=== PATIENT | male | born 1995 | race Two or more races ===

== ENCOUNTER 2019-02-26 11:55 | Inpatient (IN) | payer OTHER, BC ==
[2019-02-26] MEDS ORDERED: Sodium Chloride 0.9% 1,000 ML IV ONE (12:20)
[2019-02-26] MEDS ORDERED: fentaNYL 50 MCG/ML SDV IVPUSH ONE (12:20)
[2019-02-26] MEDS ORDERED: fentaNYL 100 MCG/2 ML SDV ONE (12:22)
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
[2019-02-26 12:47] LABS: BLOOD UREA NITROGEN,BUN 14 mg/dL (7.0-18.0); CARBON DIOXIDE,CO2 25.6 mmol/L (21.0-32.0); CHLORIDE,CL 104 mmol/L (98-107); GLUCOSE RANDOM 130 mg/dL (74-106); LIPASE 178 U/L (73-393); POTASSIUM,K 3.7 mmol/L (3.5-5.1); SODIUM,NA 141 mmol/L (136-148)
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
[2019-02-26] MEDS: Iopamidol 755 MG/ML 200 ML Multipack Bottle IVPUSH ONE ×2 (12:53→20:09)
--- NOTE | 2019-02-26 13:15 | CT ---
CT abdomen and pelvis Technique: Multiple axial sections were obtained from above the dome of the diaphragm inferiorly through the pubic symphysis. Intravenous contrast was utilized. No oral contrast has been given. Comparison: No prior abdominal imaging is available. Findings: Visualized lung bases show hazy parenchymal densities most likely representing atelectasis. Liver laceration is noted inferiorly with a small amount of surrounding blood. No additional abnormality is seen within the liver. Spleen appears within normal limits. Adrenal glands show no nodule. Kidneys show symmetric contrast enhancement without hydronephrosis or mass. Pancreas is within normal limits. Gallbladder contains no calcified gallstones. Aorta shows no aneurysm. No retroperitoneal adenopathy or mesenteric abnormalities are seen. Slight increased density within the mesentery within the right lower abdomen is noted most likely representing small mesenteric contusion. Further definition of this contusion is difficult without oral contrast. No pelvic mass or adenopathy is seen. No free fluid is seen. Fat-containing right inguinal hernia is noted. Bone window settings were reviewed which shows no discrete acute osseous finding. Impression: 1. Liver laceration within the inferior right lobe with mild amount of surrounding hematoma compatible with grade 1 to grade 2 injury. 2. Slight increased density within the right lower mesentery most likely due to small mesenteric contusion. 3. Other findings as noted above. No other acute abnormality is seen. Diagnostic code #3 This report was dictated in [place] Standard Time
[2019-02-26] MEDS ORDERED: HYDROmorphone 2 MG/ML Syringe IVPUSH ONE ×2 (13:23→13:48)
[2019-02-26] MEDS ORDERED: Ondansetron 4 MG/2 ML SDV IVPUSH ONE (13:49)
[2019-02-26] MEDS ORDERED: Ondansetron 4 MG/2 ML SDV ONE ×2 (13:51→14:33)
--- NOTE | 2019-02-26 14:22 | CR ---
Pelvis: AP view of the pelvis was obtained. Comparison: No previous pelvis exam. Bony density is seen off the superior acetabulum. Joint spaces within both hips are maintained. Sacroiliac joints appear within normal limits. Impression: 1. Small bony density off the superior right acetabulum. Recent CT study was reviewed which does show small lucent line within the superior acetabulum. Findings are suspicious for minimal peripheral fracture within the superior right acetabulum. 2. AP pelvis study is otherwise unremarkable. Diagnostic code #3 This report was dictated in [place] Standard Time
--- NOTE | 2019-02-26 14:22 | CR ---
Right knee: AP and lateral views of the right knee were obtained. Comparison: No previous knee exam. Medial and lateral joint spaces are preserved. No joint effusion is seen. No fracture or other abnormality is appreciated. Impression: 1. No abnormality is seen on 2 view right knee exam. Diagnostic code #1 This report was dictated in [place] Standard Time
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
--- NOTE | 2019-02-26 14:27 | PCM.SN ---
- Free Text/Narrative Note: pt seen, chart reviewed; liver lac gr 1 - 2 , no contrast extravasation or hemodynamic instability; and abd exam benign; would need to be bed flat X 4 - 5 days; and check h/h; pt is taking to or for R femur fracture by ortho; [id number]
[2019-02-26] MEDS ORDERED: Rocuronium 100 MG/10 ML Syringe ONE (14:32)
[2019-02-26] MEDS ORDERED: fentaNYL 250 MCG/5 ML SDV ONE (14:33)
[2019-02-26] MEDS ORDERED: Propofol 200 MG/20 ML SDV ONE (14:33)
[2019-02-26] MEDS ORDERED: Midazolam 1 MG/ML 2 ML SDV ONE (14:33)
[2019-02-26] MEDS ORDERED: Lidocaine 2% 5 ML SDV ONE (14:33)
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
[2019-02-26] MEDS ORDERED: ceFAZolin 2 GM in Premix Bag 1 BAG IV ONE (14:58)
--- NOTE | 2019-02-26 15:24 | PCM.SN ---
- Free Text/Narrative Note: pt has grade 1-2 liver lac. treatment is straight bed flat, bed rest X 3 days; admitted to telemetry, with h/h q12; pt aware if there is any hemodynamic instability, pt would need to be transfer out to tertiary care center. DVT SCD , no chemical anticoag. can roll to side to side q2 hr for decubitis precaution ; and HOB 30 degree for meal on day 2; most the time, remained bed flat, bed rest. first day remained npo/protonix after ortho surgery.
[2019-02-26] MEDS ORDERED: ceFAZolin 1 GM Vial ONE (15:32)
[2019-02-26] MEDS ORDERED: Sodium Chloride 0.9% 20 ML ONE (15:32)
[2019-02-26] MEDS ORDERED: ePHEDrine 50 MG/ML SDV ONE (15:51)
[2019-02-26] MEDS ORDERED: Glycopyrrolate 0.2 MG/ML SDV ONE (15:54)
[2019-02-26] MEDS ORDERED: EPINEPHrine 1:10,000 1 MG/10 ML Syringe IVPUSH PRN (17:55)
[2019-02-26] MEDS ORDERED: Naloxone 0.4 MG/ML Syringe IVPUSH PRN (17:55)
[2019-02-26] MEDS ORDERED: Atropine 0.1 MG/ML 10 ML Syringe IVPUSH PRN ×2 (17:55)
[2019-02-26] MEDS ORDERED: 50% Dextrose in Water 50 ML Syringe IVPUSH PRN (17:55)
[2019-02-26] MEDS ORDERED: Albuterol 0.083% 2.5 MG/3 ML Neb Soln NEB PRN (17:55)
--- NOTE | 2019-02-26 18:07 | PCM.OPNOTE ---
- General Post-Op/Procedure Note Date of Surgery/Procedure: 02/26/19 Operative Procedure(s): right femur antegrade nail Pre Op Diagnosis: right femur closed shaft fracture Post-Op Diagnosis: Same Anesthesia Technique: General ET Tube Primary Surgeon: Madhu Arellano EBL in mLs: 1,000 Complications: None Condition: Stable
[2019-02-26] MEDS ORDERED: HYDROmorphone 2 MG/ML Syringe IVPUSH PRN (18:21)
[2019-02-26] MEDS: fentaNYL 100 MCG/2 ML SDV IVPUSH PRN ×2 (18:22→18:35)
--- NOTE | 2019-02-26 18:56 | PCM.POSTAN ---
POST ANESTHESIA ASSESSMENT - MENTAL STATUS Mental Status: Alert, Oriented Free Text/Narrative:: Awakes when name is called. - VITAL SIGNS Vital Signs: Last Vital Signs Temp 99.0 F 02/26/19 18:07 Pulse 109 H 02/26/19 18:47 Resp 12 02/26/19 18:47 BP 124/81 02/26/19 18:47 Pulse Ox 99 02/26/19 18:47 - RESPIRATORY Respiratory Status: Respiratory Rate WNL, Airway Patent, O2 Saturation Stable - CARDIOVASCULAR CV Status: Pulse Rate WNL, Blood Pressure Stable - GASTROINTESTINAL GI Status: No Symptoms - PAIN Pain Score: 3 - POST OP HYDRATION Hydration Status: Adequate & Stable - OBSERVATIONS Free Text/Narrative:: Significant intra-op hypotension and tachycardia. After induction SBP 70-80's with HR 150's. Responsive to ephedrine and phenylephrine; intra-op 16g IV placed and aggressive crystalloid resuscitation performed. Currently 4.5L Crystalloid since admission. Lactate checked in PACU and is elevated at 3.0. Dr Giron Requesting ICU at this time. U/O 30-45mL/HR intra-op despite fluid administration.
[2019-02-26] MEDS ORDERED: Iopamidol 755 Mg/ML 100 ML Bottle IVPUSH ONE (20:09)
--- NOTE | 2019-02-26 20:09 | OR ---
SURGEON: Madhu Arellano DATE OF PROCEDURE: 02/26/2019 PREOPERATIVE DIAGNOSIS: Right femoral shaft fracture, closed. POSTOPERATIVE DIAGNOSIS: Right femoral shaft fracture, closed. PROCEDURE PERFORMED: Right femoral shaft fracture, intramedullary antegrade nail. PRIMARY SURGEON: Madhu Arellano D.O. ANESTHESIA: General endotracheal intubation. FLUIDS: Lactated Ringer solution. ESTIMATED BLOOD LOSS: 1000 mL. COMPLICATIONS: None. SPECIMEN: None. DISCHARGE DISPOSITION: Stable to PACU. HISTORY AND INDICATIONS FOR THE PROCEDURE: The patient was seen preoperatively by myself in the emergency department. He had suffered the above-mentioned fracture which is confirmed on radiographs. Risks and benefits of procedure were explained to the patient and informed consent was obtained. DETAILS OF PROCEDURE: The patient was seen preoperatively by myself and the Anesthesia staff in the preop holding area where the operative site was marked. He was brought to the operative suite by Anesthesia staff, where general anesthesia was administered. He was placed on the trauma table. Both lower extremities had the feet placed into the boots, the traction placed on the right lower extremity, the operative leg was lower than the nonoperative leg. All extremities found to be well padded. The right lower extremity was prepped and draped and then a time-out was called identifying the correct patient, the correct procedure, the correct side, and antibiotics had been given within appropriate time. A sterilely draped fluoroscopy unit was used during the procedure. The greater trochanter was identified using AP fluoroscopy and then through palpation laterally. I then made an incision in proximal greater trochanter and then through the fascia. The patient had quite a bit of fat on him, so this did take a little time. The awl was then entered at the junction of the anterior 1/3 and posterior 2/3 of the greater trochanter. I then used to advance it. This was difficult, so I used imaging to ensure that our path was good. The issue was that the proximal fragment of course was flexed and the distal fragment was sagging. Because it was so difficult, I placed my guidewire through and I took quite a bit of time in order to get this reduced so that the guidewire can pass. Once a guidewire passed, we measured 420 down to the knee. We sequentially reamed from 9.5 up to 13 and after we did an entry reamer which was a 13 down to the level lesser trochanter, which was also very difficult secondary to the bone quality, we had sufficient chatter with the reamers. 11 x 420 nail was then advanced. This was extremely difficult, and I removed the nail and then overreamed to a 13/5. I then continued to pass the nail and had to hammer it the entire way down and this was extremely difficult. It passed the fracture site easily, but we had to hammer it all the way to the knee. Once I ensured that it was not too far the knee and it was as far as it could go actually and then it was in proper position proximally, I took off the traction so that the femoral portions could oppose each other. I then used my outrigger and then drilled my antegrade hole down to the area of the lesser trochanter. This measured 50 mm and I placed a screw. I then focused on my perfect [employer] technique and placed a 47.5 mm distal locking screw. After this was completed, I copiously irrigated with saline, took final films, closed the proximal incision with 0 Stratafix and osmani and the remainder of the incisions with osmani followed by Betadine-soaked Adaptic sponges and Medipore tape. We then transferred the patient back to his hospital bed where he was allowed to awaken from general anesthesia in the PACU. [id number] / MODL /[id number]
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
[2019-02-26] MEDS: Ondansetron 4 MG/2 ML SDV IVPUSH PRN (20:57)
[2019-02-26] MEDS: Sodium Chloride 0.9% 1,000 ML IV SCH (22:34)
[2019-02-27] MEDS ORDERED: ceFAZolin 1 GM in Premix Bag 1 BAG IV ONE (00:13)
--- NOTE | 2019-02-27 01:15 | CR ---
Indication: Tachycardia Technique: Chest 1 view Comparison: None Findings/Impression: Cardiovascular and mediastinum: An enlarged cardiac silhouette could be related to the portable technique. Lungs and pleural space: Low lung volumes. Small infrahilar opacities could represent atelectasis or evolving infiltrates. Correlate clinically and follow-up. No gross pleural effusions. Bones and soft tissues: No significant findings. Dictated by Norm Khalil MD @ 02/27/2019 1:12:09 AM Dictated by: Norm Khalil MD @ 02/27/2019 01:12:20 (Electronically Signed)
[2019-02-27 01:31] LABS: BLOOD UREA NITROGEN,BUN 12 mg/dL (7.0-18.0); CARBON DIOXIDE,CO2 28.1 mmol/L (21.0-32.0); CHLORIDE,CL 106 mmol/L (98-107); GLUCOSE RANDOM 153 mg/dL (74-106); POTASSIUM,K 4.5 mmol/L (3.5-5.1); SODIUM,NA 141 mmol/L (136-148)
[2019-02-27] MEDS ORDERED: Magnesium Sulfate/Water 2 GM in Premix Bag 1 BAG IV ONE (01:55)
[2019-02-27] MEDS: Sodium Chloride 0.9% 1,000 ML IV SCH ×4 (05:23→18:42)
[2019-02-27] MEDS: HYDROmorphone 1 MG/ML Syringe IVPUSH PRN ×4 (06:58→22:52)
--- NOTE | 2019-02-27 09:32 | PCM48HPAN ---
Post Anesthesia Note - EVALUATION WITHIN 48HRS OF ANESTHETIC Vital Signs in Normal Range: Yes Patient Participated in Evaluation: Yes Respiratory Function Stable: Yes Airway Patent: Yes Cardiovascular Function Stable: Yes Hydration Status Stable: Yes Pain Control Satisfactory: Yes Nausea and Vomiting Control Satisfactory: Yes Mental Status Recovered: Yes Vital Signs: Last Vital Signs Temp 99.1 F 02/27/19 04:00 Pulse 109 H 02/26/19 18:51 Resp 19 02/27/19 07:00 BP 104/57 L 02/27/19 07:00 Pulse Ox 91 L 02/27/19 07:00 - COMMENTS/OBSERVATIONS Free Text/Narrative:: Rising Lactate overnight, is trending down this AM.
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
[2019-02-27] MEDS ORDERED: ceFAZolin 2 GM in Premix Bag 1 BAG IV ONE (11:24)
--- NOTE | 2019-02-27 12:49 | CR ---
Right femur: 6 fluoroscopic spot views were obtained of the right femur utilizing C-arm device. Comparison: Previous femur study performed earlier on the same day (12:01 PM). Previous femur fracture shows evidence of reduction with intramedullary alysia being placed. Fluoroscopy time given as 312.5 seconds. Impression: 1. Procedural study as noted above. Diagnostic code #2 This report was dictated in [place] Standard Time
[2019-02-27] MEDS ORDERED: Iopamidol 755 MG/ML 200 ML Multipack Bottle IVPUSH ONE (14:01)
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
[2019-02-27] MEDS ORDERED: Phenol 1.4% Oral Spray 177 ML Bottle MUCMEM PRN (20:36)
[2019-02-28] MEDS: Sodium Chloride 0.9% 1,000 ML IV SCH ×4 (00:50→23:34)
[2019-02-28] MEDS: Acetaminophen/oxyCODONE 325-5 MG Tab PO PRN ×5 (01:43→22:08)
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
--- NOTE | 2019-02-28 13:33 | PCM.SURGPN ---
- General Info Date of Service: 02/28/19 Functional Status: Reports: Pain Controlled - Review of Systems General: Reports: No Symptoms (on full liquid, fidel well, and is hungry; bed flat for liver lac, h/h dropped to 9.1, may be dilutional, will recheck; PE scan -ve.) - Patient Data Vitals - Most Recent: Last Vital Signs Temp 98.6 F 02/28/19 08:00 Pulse 109 H 02/26/19 18:51 Resp 15 02/28/19 13:00 BP 124/64 02/28/19 13:00 Pulse Ox 95 02/28/19 13:00 Weight - Most Recent: 248 lb 6.4 oz I&O - Last 24 Hours: Intake & Output 02/27/19 02/28/19 02/28/19 22:59 06:59 14:59 Intake Total 981 2225 Output Total 925 1950 Balance 56 275 Lab Results Last 24 Hrs: Laboratory Results - last 24 hr 02/27/19 02/27/19 02/28/19 Range/Units 18:03 21:22 05:43 WBC 7.85 8.60 (4.0-11.0) K/uL RBC 3.71 L 3.29 L (4.50-5.90) M/uL Hgb 10.2 L 9.1 L (13.0-17.0) g/dL Hct 32.2 L 28.2 L (38.0-50.0) % MCV 86.8 85.7 (80.0-98.0) fL MCH 27.5 27.7 (27.0-32.0) pg MCHC 31.7 32.3 (31.0-37.0) g/dL RDW Std Deviation 41.7 40.3 (28.0-62.0) fl RDW Coeff of Diana 13 13 (11.0-15.0) % Plt Count 147 L 143 L (150-400) K/uL MPV 10.40 9.90 (7.40-12.00) fL Neut % (Auto) 76.3 75.9 (48.0-80.0) % Lymph % (Auto) 11.8 L 11.5 L (16.0-40.0) % [place] % (Auto) 11.7 12.2 (0.0-15.0) % Eos % (Auto) 0.1 0.2 (0.0-7.0) % Baso % (Auto) 0.1 0.2 (0.0-1.5) % Neut # (Auto) 6.0 H 6.5 H (1.4-5.7) K/uL Lymph # (Auto) 0.9 1.0 (0.6-2.4) K/uL [place] # (Auto) 0.9 H 1.1 H (0.0-0.8) K/uL Eos # (Auto) 0.0 0.0 (0.0-0.7) K/uL Baso # (Auto) 0.0 0.0 (0.0-0.1) K/uL Nucleated RBC % 0.0 0.0 /100WBC Nucleated RBCs # 0 0 K/uL POC Glucose 122 H (60-110) mg/dL 02/28/19 Range/Units 06:02 WBC (4.0-11.0) K/uL RBC (4.50-5.90) M/uL Hgb (13.0-17.0) g/dL Hct (38.0-50.0) % MCV (80.0-98.0) fL MCH (27.0-32.0) pg MCHC (31.0-37.0) g/dL RDW Std Deviation (28.0-62.0) fl RDW Coeff of [place] (11.0-15.0) % Plt Count (150-400) K/uL MPV (7.40-12.00) fL Neut % (Auto) (48.0-80.0) % Lymph % (Auto) (16.0-40.0) % [place] % (Auto) (0.0-15.0) % Eos % (Auto) (0.0-7.0) % Baso % (Auto) (0.0-1.5) % Neut # (Auto) (1.4-5.7) K/uL Lymph # (Auto) (0.6-2.4) K/uL [place] # (Auto) (0.0-0.8) K/uL Eos # (Auto) (0.0-0.7) K/uL Baso # (Auto) (0.0-0.1) K/uL Nucleated RBC % /100WBC Nucleated RBCs # K/uL POC Glucose 127 H (60-110) mg/dL Med Orders - Current: Current Medications Hydromorphone HCl (Dilaudid) 1 mg IVPUSH Q2H PRN PRN Reason: Pain Last Admin: 02/27/19 22:52 Dose: 1 mg Sodium Chloride (Normal Saline) 1,000 mls @ 175 mls/hr IV ASDIRECTED EVANGELINA Last Admin: 02/28/19 06:12 Dose: 175 mls/hr Ondansetron HCl (Zofran) 4 mg IVPUSH Q8H PRN PRN Reason: Nausea/Vomiting Last Admin: 02/26/19 20:57 Dose: 4 mg Oxycodone/Acetaminophen (Percocet 325-5 Mg) 2 tab PO Q4H PRN PRN Reason: Pain (severe 7-10) Last Admin: 02/28/19 11:58 Dose: 2 tab Phenol/Menthol (Chloraseptic Throat [place]) 0 ml MUCMEM Q2H PRN PRN Reason: Sore Throat Discontinued Medications Albuterol (Proventil Neb Soln) 2.5 mg NEB ONETIME PRN PRN Reason: Wheezing Atropine Sulfate (Atropine 0.1 Mg/Ml) 0.5 mg IVPUSH ASDIRECTED PRN PRN Reason: Hypo-perfusion Atropine Sulfate (Atropine 0.1 Mg/Ml) 1 mg IVPUSH ASDIRECTED PRN PRN Reason: Hypo-Perfusion Cefazolin Sodium (Ancef) Confirm Administered Dose 2 gm .ROUTE .STK-MED ONE Stop: 02/26/19 15:33 Dextrose/Water (Dextrose 50% In Water) 50 ml IVPUSH ASDIRECTED PRN PRN Reason: Hypoglycemia Ephedrine Sulfate (Ephedrine Sulfate) Confirm Administered Dose 50 mg .ROUTE .STK-MED ONE Stop: 02/26/19 15:52 Epinephrine HCl (Epinephrine 1:10,000) 1 mg IVPUSH ASDIRECTED PRN PRN Reason: ACLS Guidelines Fentanyl (Fentanyl) 50 mcg IVPUSH ONETIME ONE Stop: 02/26/19 12:21 Last Admin: 02/26/19 12:57 Dose: Not Given Fentanyl (Sublimaze) Confirm Administered Dose 100 mcg .ROUTE .STK-MED ONE Stop: 02/26/19 12:23 Last Admin: 02/26/19 12:27 Dose: 50 mcg Fentanyl (Sublimaze) Confirm Administered Dose 250 mcg .ROUTE .STK-MED ONE Stop: 02/26/19 14:34 Fentanyl (Sublimaze) 50 - 100 mcg IVPUSH Q5M PRN PRN Reason: Pain Last Admin: 02/26/19 18:35 Dose: 50 mcg Glycopyrrolate (Robinul) Confirm Administered Dose 0.2 mg .ROUTE .STK-MED ONE Stop: 02/26/19 15:55 Hydromorphone HCl (Dilaudid) 2 mg IVPUSH ONETIME ONE Stop: 02/26/19 13:24 Last Admin: 02/26/19 13:33 Dose: 2 mg Hydromorphone HCl (Dilaudid) 2 mg IVPUSH ONETIME ONE Stop: 02/26/19 13:49 Last Admin: 02/26/19 13:53 Dose: 2 mg Hydromorphone HCl (Dilaudid) 2 mg IVPUSH Q2H PRN PRN Reason: pain Last Admin: 02/26/19 23:32 Dose: 2 mg Sodium Chloride (Normal Saline) 1,000 mls @ 999 mls/hr IV .Bolus ONE Stop: 02/26/19 13:20 Last Admin: 02/26/19 13:33 Dose: 999 mls/hr Cefazolin Sodium/Dextrose 2 gm (/ Premix) 50 mls @ 100 mls/hr IV ONETIME ONE Stop: 02/26/19 15:27 Last Admin: 02/26/19 21:39 Dose: Not Given Sodium Chloride (Normal Saline) Confirm Administered Dose 20 mls @ as directed .ROUTE .STK-MED ONE Stop: 02/26/19 15:33 Sodium Chloride (Normal Saline) 1,000 mls @ 150 mls/hr IV ASDIRECTED [facility] Last Admin: 02/27/19 18:42 Dose: 175 mls/hr Cefazolin Sodium/Dextrose 1 gm (/ Premix) 50 mls @ 100 mls/hr IV ONETIME ONE Stop: 02/27/19 00:42 Last Admin: 02/27/19 00:28 Dose: 100 mls/hr Magnesium Sulfate 2 gm/ Premix 50 mls @ 50 mls/hr IV ONETIME ONE Stop: 02/27/19 02:54 Last Admin: 02/27/19 02:01 Dose: 50 mls/hr Cefazolin Sodium/Dextrose 2 gm (/ Premix) 50 mls @ 100 mls/hr IV ONETIME ONE Stop: 02/27/19 11:53 Last Admin: 02/27/19 12:51 Dose: 100 mls/hr Iopamidol (Isovue Multipack-370 (76%)) 100 ml IVPUSH ONETIME ONE Stop: 02/26/19 12:53 Last Admin: 02/26/19 20:09 Dose: 100 ml Iopamidol (Isovue-370 (76%)) 100 ml IVPUSH ONETIME ONE Stop: 02/26/19 20:10 Last Admin: 02/26/19 21:39 Dose: Not Given Iopamidol (Isovue Multipack-370 (76%)) 60 ml IVPUSH ONETIME ONE Stop: 02/27/19 14:02 Last Admin: 02/27/19 14:01 Dose: 60 ml Lidocaine (Xylocaine-Mpf 2%) Confirm Administered Dose 5 ml .ROUTE .STK-MED ONE Stop: 02/26/19 14:34 Midazolam HCl (Versed 1 Mg/Ml) Confirm Administered Dose 2 mg .ROUTE .STK-MED ONE Stop: 02/26/19 14:34 Naloxone HCl (Narcan) 0.1 mg IVPUSH ASDIRECTED PRN PRN Reason: Respiratory Depression Ondansetron HCl (Zofran) 4 mg IVPUSH ONETIME ONE Stop: 02/26/19 13:50 Last Admin: 02/26/19 13:53 Dose: 4 mg Ondansetron HCl (Zofran) Confirm Administered Dose 4 mg .ROUTE .STK-MED ONE Stop: 02/26/19 13:52 Last Admin: 02/26/19 13:54 Dose: Not Given Ondansetron HCl (Zofran) Confirm Administered Dose 4 mg .ROUTE .STK-MED ONE Stop: 02/26/19 14:34 Propofol (Diprivan 20 Ml) Confirm Administered Dose 200 mg .ROUTE .STK-MED ONE Stop: 02/26/19 14:34 Rocuronium [place] (Zemuron) Confirm Administered Dose 100 mg .ROUTE .STK-MED ONE Stop: 02/26/19 14:33 Succinylcholine Chloride (Succinylcholine Chloride) Confirm Administered Dose 200 mg .ROUTE .STK-MED ONE Stop: 02/26/19 14:33 - Exam General: Alert, Oriented Neck: Supple Lungs: Clear to Auscultation Cardiovascular: Regular Rhythm GI/Abdominal Exam: Normal Bowel Sounds, Soft, Non-Tender, No Distention (moving foot/toes On right) Sepsis Event Note - Evaluation Sepsis Screening Result: No Definite Risk - Focused Exam Vital Signs: Vital Signs Temp Resp BP Pulse Ox 02/28/19 13:00 15 124/64 95 02/28/19 11:00 18 119/59 L 94 L 02/28/19 10:00 16 103/57 L 96 02/28/19 09:00 15 118/60 96 02/28/19 08:00 98.6 F 17 99/63 94 L 02/28/19 07:00 12 102/53 L 93 L 02/28/19 06:00 98.9 F 18 116/70 94 L 02/28/19 05:00 99.3 F 18 131/69 92 L 02/28/19 04:00 99.1 F 18 143/77 H 93 L 02/28/19 03:00 99.1 F 19 135/76 93 L 02/28/19 02:00 99.6 F 16 124/73 97 Date Exam was Performed: 02/28/19 Time Exam was Performed: 13:29 - Problem List Review Problem List Initiated/Reviewed/Updated: Yes - My Orders Last 24 Hours: Active Orders 24 hr Category Date Time Status Clear Liquid Diet [DIET] Diet 02/27/19 Dinner Active CBC WITH AUTO DIFF [HEME] DAILY Lab 02/28/19 18:00 Ordered CBC WITH AUTO DIFF [HEME] DAILY Lab 03/01/19 06:00 Ordered CBC WITH AUTO DIFF [HEME] DAILY Lab 03/01/19 18:00 Ordered HEMOGLOBIN/HEMATOCRIT,HH [HEME] Routine Lab 02/28/19 17:00 Ordered Phenol [Chloraseptic Throat [place]] Med 02/27/19 20:36 Active 0 ml MUCMEM Q2H PRN Sodium Chloride 0.9% [Normal Saline] 1,000 ml Med 02/27/19 14:30 Active IV ASDIRECTED Medication Orders Hydromorphone HCl (Dilaudid) 1 mg IVPUSH Q2H PRN PRN Reason: Pain Last Admin: 02/27/19 22:52 Dose: 1 mg Admin: 02/27/19 18:40 Dose: 1 mg Admin: 02/27/19 12:42 Dose: 1 mg Admin: 02/27/19 06:58 Dose: 1 mg Sodium Chloride (Normal Saline) 1,000 mls @ 175 mls/hr IV ASDIRECTED EVANGELINA Last Admin: 02/28/19 06:12 Dose: 175 mls/hr Infusion: 02/28/19 06:12 Dose: 175 mls/hr Admin: 02/28/19 00:50 Dose: 175 mls/hr Ondansetron HCl (Zofran) 4 mg IVPUSH Q8H PRN PRN Reason: Nausea/Vomiting Last Admin: 02/26/19 20:57 Dose: 4 mg Oxycodone/Acetaminophen (Percocet 325-5 Mg) 2 tab PO Q4H PRN PRN Reason: Pain (severe 7-10) Last Admin: 02/28/19 11:58 Dose: 2 tab Admin: 02/28/19 01:43 Dose: 2 tab Phenol/Menthol (Chloraseptic Throat [place]) 0 ml MUCMEM Q2H PRN PRN Reason: Sore Throat - Assessment Assessment (Free Text/Narrative):: pod1 from R ORIF femur, live lac; bed flat, fidel po full liquid; h/h dropped 9.1 , pt got a lot of ivf for ct contrast X 3; making lots of urine; will recheck h/ h 12 hrs; ow doing well; ortho followed surgery site - Plan Plan (Free Text/Narrative):: pod1 from R ORIF femur, live lac; bed flat, fidel po full liquid; h/h dropped 9.1 , pt got a lot of ivf for ct contrast X 3; making lots of urine; will recheck h/ h 12 hrs; ow doing well; ortho followed surgery site
--- NOTE | 2019-02-28 14:59 | PCM.PN ---
- General Info Date of Service: 02/27/19 Admission Dx/Problem (Free Text): Admission Diagnosis/Problem Admission Diagnosis/Problem Traumatic injury Functional Status: Reports: Pain Controlled, Tolerating Diet - Review of Systems General: Reports: Weakness, Fatigue HEENT: Reports: No Symptoms Pulmonary: Reports: No Symptoms Cardiovascular: Reports: Other Gastrointestinal: Reports: No Symptoms Genitourinary: Reports: No Symptoms Musculoskeletal: Reports: Leg Pain, Joint Pain, Joint Swelling Skin: Reports: No Symptoms Neurological: Reports: No Symptoms Psychiatric: Reports: No Symptoms - Patient Data Vitals - Most Recent: Last Vital Signs Temp 37.0 C 02/28/19 08:00 Pulse 109 H 02/26/19 18:51 Resp 15 02/28/19 13:00 BP 124/64 02/28/19 13:00 Pulse Ox 95 02/28/19 13:00 Weight - Most Recent: 112.672 kg I&O - Last 24 Hours: Intake & Output 02/27/19 02/28/19 02/28/19 22:59 06:59 14:59 Intake Total 981 2225 Output Total 925 1950 Balance 56 275 Lab Results Last 24 Hours: Laboratory Results - last 24 hr 02/27/19 02/27/19 02/28/19 Range/Units 18:03 21:22 05:43 WBC 7.85 8.60 (4.0-11.0) K/uL RBC 3.71 L 3.29 L (4.50-5.90) M/uL Hgb 10.2 L 9.1 L (13.0-17.0) g/dL Hct 32.2 L 28.2 L (38.0-50.0) % MCV 86.8 85.7 (80.0-98.0) fL MCH 27.5 27.7 (27.0-32.0) pg MCHC 31.7 32.3 (31.0-37.0) g/dL RDW Std Deviation 41.7 40.3 (28.0-62.0) fl RDW Coeff of [place] 13 13 (11.0-15.0) % Plt Count 147 L 143 L (150-400) K/uL MPV 10.40 9.90 (7.40-12.00) fL Neut % (Auto) 76.3 75.9 (48.0-80.0) % Lymph % (Auto) 11.8 L 11.5 L (16.0-40.0) % [place] % (Auto) 11.7 12.2 (0.0-15.0) % Eos % (Auto) 0.1 0.2 (0.0-7.0) % Baso % (Auto) 0.1 0.2 (0.0-1.5) % Neut # (Auto) 6.0 H 6.5 H (1.4-5.7) K/uL Lymph # (Auto) 0.9 1.0 (0.6-2.4) K/uL [place] # (Auto) 0.9 H 1.1 H (0.0-0.8) K/uL Eos # (Auto) 0.0 0.0 (0.0-0.7) K/uL Baso # (Auto) 0.0 0.0 (0.0-0.1) K/uL Nucleated RBC % 0.0 0.0 /100WBC Nucleated RBCs # 0 0 K/uL POC Glucose 122 H (60-110) mg/dL 02/28/19 Range/Units 06:02 WBC (4.0-11.0) K/uL RBC (4.50-5.90) M/uL Hgb (13.0-17.0) g/dL Hct (38.0-50.0) % MCV (80.0-98.0) fL MCH (27.0-32.0) pg MCHC (31.0-37.0) g/dL RDW Std Deviation (28.0-62.0) fl RDW Coeff of [place] (11.0-15.0) % Plt Count (150-400) K/uL MPV (7.40-12.00) fL Neut % (Auto) (48.0-80.0) % Lymph % (Auto) (16.0-40.0) % [place] % (Auto) (0.0-15.0) % Eos % (Auto) (0.0-7.0) % Baso % (Auto) (0.0-1.5) % Neut # (Auto) (1.4-5.7) K/uL Lymph # (Auto) (0.6-2.4) K/uL [place] # (Auto) (0.0-0.8) K/uL Eos # (Auto) (0.0-0.7) K/uL Baso # (Auto) (0.0-0.1) K/uL Nucleated RBC % /100WBC Nucleated RBCs # K/uL POC Glucose 127 H (60-110) mg/dL Med Orders - Current: Current Medications Hydromorphone HCl (Dilaudid) 1 mg IVPUSH Q2H PRN PRN Reason: Pain Last Admin: 02/27/19 22:52 Dose: 1 mg Sodium Chloride (Normal Saline) 1,000 mls @ 175 mls/hr IV ASDIRECTED EVANGELINA Last Admin: 02/28/19 06:12 Dose: 175 mls/hr Ondansetron HCl (Zofran) 4 mg IVPUSH Q8H PRN PRN Reason: Nausea/Vomiting Last Admin: 02/26/19 20:57 Dose: 4 mg Oxycodone/Acetaminophen (Percocet 325-5 Mg) 2 tab PO Q4H PRN PRN Reason: Pain (severe 7-10) Last Admin: 02/28/19 11:58 Dose: 2 tab Phenol/Menthol (Chloraseptic Throat [place]) 0 ml MUCMEM Q2H PRN PRN Reason: Sore Throat Discontinued Medications Albuterol (Proventil Neb Soln) 2.5 mg NEB ONETIME PRN PRN Reason: Wheezing Atropine Sulfate (Atropine 0.1 Mg/Ml) 0.5 mg IVPUSH ASDIRECTED PRN PRN Reason: Hypo-perfusion Atropine Sulfate (Atropine 0.1 Mg/Ml) 1 mg IVPUSH ASDIRECTED PRN PRN Reason: Hypo-Perfusion Cefazolin Sodium (Ancef) Confirm Administered Dose 2 gm .ROUTE .STK-MED ONE Stop: 02/26/19 15:33 Dextrose/Water (Dextrose 50% In Water) 50 ml IVPUSH ASDIRECTED PRN PRN Reason: Hypoglycemia Ephedrine Sulfate (Ephedrine Sulfate) Confirm Administered Dose 50 mg .ROUTE .STK-MED ONE Stop: 02/26/19 15:52 Epinephrine HCl (Epinephrine 1:10,000) 1 mg IVPUSH ASDIRECTED PRN PRN Reason: ACLS Guidelines Fentanyl (Fentanyl) 50 mcg IVPUSH ONETIME ONE Stop: 02/26/19 12:21 Last Admin: 02/26/19 12:57 Dose: Not Given Fentanyl (Sublimaze) Confirm Administered Dose 100 mcg .ROUTE .STK-MED ONE Stop: 02/26/19 12:23 Last Admin: 02/26/19 12:27 Dose: 50 mcg Fentanyl (Sublimaze) Confirm Administered Dose 250 mcg .ROUTE .STK-MED ONE Stop: 02/26/19 14:34 Fentanyl (Sublimaze) 50 - 100 mcg IVPUSH Q5M PRN PRN Reason: Pain Last Admin: 02/26/19 18:35 Dose: 50 mcg Glycopyrrolate (Robinul) Confirm Administered Dose 0.2 mg .ROUTE .STK-MED ONE Stop: 02/26/19 15:55 Hydromorphone HCl (Dilaudid) 2 mg IVPUSH ONETIME ONE Stop: 02/26/19 13:24 Last Admin: 02/26/19 13:33 Dose: 2 mg Hydromorphone HCl (Dilaudid) 2 mg IVPUSH ONETIME ONE Stop: 02/26/19 13:49 Last Admin: 02/26/19 13:53 Dose: 2 mg Hydromorphone HCl (Dilaudid) 2 mg IVPUSH Q2H PRN PRN Reason: pain Last Admin: 02/26/19 23:32 Dose: 2 mg Sodium Chloride (Normal Saline) 1,000 mls @ 999 mls/hr IV .Bolus ONE Stop: 02/26/19 13:20 Last Admin: 02/26/19 13:33 Dose: 999 mls/hr Cefazolin Sodium/Dextrose 2 gm (/ Premix) 50 mls @ 100 mls/hr IV ONETIME ONE Stop: 02/26/19 15:27 Last Admin: 02/26/19 21:39 Dose: Not Given Sodium Chloride (Normal Saline) Confirm Administered Dose 20 mls @ as directed .ROUTE .STK-MED ONE Stop: 02/26/19 15:33 Sodium Chloride (Normal Saline) 1,000 mls @ 150 mls/hr IV ASDIRECTED [facility] Last Admin: 02/27/19 18:42 Dose: 175 mls/hr Cefazolin Sodium/Dextrose 1 gm (/ Premix) 50 mls @ 100 mls/hr IV ONETIME ONE Stop: 02/27/19 00:42 Last Admin: 02/27/19 00:28 Dose: 100 mls/hr Magnesium Sulfate 2 gm/ Premix 50 mls @ 50 mls/hr IV ONETIME ONE Stop: 02/27/19 02:54 Last Admin: 02/27/19 02:01 Dose: 50 mls/hr Cefazolin Sodium/Dextrose 2 gm (/ Premix) 50 mls @ 100 mls/hr IV ONETIME ONE Stop: 02/27/19 11:53 Last Admin: 02/27/19 12:51 Dose: 100 mls/hr Iopamidol (Isovue Multipack-370 (76%)) 100 ml IVPUSH ONETIME ONE Stop: 02/26/19 12:53 Last Admin: 02/26/19 20:09 Dose: 100 ml Iopamidol (Isovue-370 (76%)) 100 ml IVPUSH ONETIME ONE Stop: 02/26/19 20:10 Last Admin: 02/26/19 21:39 Dose: Not Given Iopamidol (Isovue Multipack-370 (76%)) 60 ml IVPUSH ONETIME ONE Stop: 02/27/19 14:02 Last Admin: 02/27/19 14:01 Dose: 60 ml Lidocaine (Xylocaine-Mpf 2%) Confirm Administered Dose 5 ml .ROUTE .STK-MED ONE Stop: 02/26/19 14:34 Midazolam HCl (Versed 1 Mg/Ml) Confirm Administered Dose 2 mg .ROUTE .STK-MED ONE Stop: 02/26/19 14:34 Naloxone HCl (Narcan) 0.1 mg IVPUSH ASDIRECTED PRN PRN Reason: Respiratory Depression Ondansetron HCl (Zofran) 4 mg IVPUSH ONETIME ONE Stop: 02/26/19 13:50 Last Admin: 02/26/19 13:53 Dose: 4 mg Ondansetron HCl (Zofran) Confirm Administered Dose 4 mg .ROUTE .STK-MED ONE Stop: 02/26/19 13:52 Last Admin: 02/26/19 13:54 Dose: Not Given Ondansetron HCl (Zofran) Confirm Administered Dose 4 mg .ROUTE .STK-MED ONE Stop: 02/26/19 14:34 Propofol (Diprivan 20 Ml) Confirm Administered Dose 200 mg .ROUTE .STK-MED ONE Stop: 02/26/19 14:34 Rocuronium [place] (Zemuron) Confirm Administered Dose 100 mg .ROUTE .STK-MED ONE Stop: 02/26/19 14:33 Succinylcholine Chloride (Succinylcholine Chloride) Confirm Administered Dose 200 mg .ROUTE .STK-MED ONE Stop: 02/26/19 14:33 - Exam Quality Assessment: Supplemental Oxygen General: Alert, Oriented, Mild Distress HEENT: Pupils Equal, Pupils Reactive, EOMI, Mucous Membr. Moist/[place] Neck: Supple, Trachea Midline Lungs: Normal Respiratory Effort Extremities: Leg Pain, Limited Range of Motion Peripheral Pulses: 2+: Dorsalis Pedis (R) Skin: Warm, Dry, Intact Wound/Incisions: Healing Well, Dressing Dry and Intact, Drainage Neurological: Other Psy/Mental Status: Alert, Normal Affect, Normal Mood Physical Findings Comments:: decreased sensation right leg, ankle, and foot Sepsis Event Note - Evaluation Sepsis Screening Result: No Definite Risk - Focused Exam Vital Signs: Vital Signs Temp Resp BP Pulse Ox 02/28/19 13:00 15 124/64 95 02/28/19 11:00 18 119/59 L 94 L 02/28/19 10:00 16 103/57 L 96 02/28/19 09:00 15 118/60 96 02/28/19 08:00 37.0 C 17 99/63 94 L 02/28/19 07:00 12 102/53 L 93 L 02/28/19 06:00 37.2 C 18 116/70 94 L 02/28/19 05:00 37.4 C 18 131/69 92 L 02/28/19 04:00 37.3 C 18 143/77 H 93 L 02/28/19 03:00 37.3 C 19 135/76 93 L Date Exam was Performed: 02/28/19 Time Exam was Performed: 14:56 - Problem List & Annotations (1) Displaced oblique fracture of shaft of right femur, initial encounter for closed fracture SNOMED Code(s): 72029622, 436814212, 357006037 Code(s): S72.331A - DISPLACED [place] FRACTURE OF SHAFT OF RIGHT FEMUR, INIT Status: Acute Current Visit: Yes - Problem List Review Problem List Initiated/Reviewed/Updated: Yes - Plan Plan:: A: POD 1 right femoral recon nail, tachycardia, resolved increased lactate P: continue abx, bedrest per trauma, scds, no adjuct dvt prophylaxis secondary to liver laceration
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
[2019-03-01] MEDS: Sodium Chloride 0.9% 1,000 ML IV SCH ×3 (05:18→18:44)
[2019-03-01] MEDS: Acetaminophen/oxyCODONE 325-5 MG Tab PO PRN ×3 (05:30→20:21)
[2019-03-01 09:28] LABS: BLOOD UREA NITROGEN,BUN 5 mg/dL (7.0-18.0); CARBON DIOXIDE,CO2 28.2 mmol/L (21.0-32.0); CHLORIDE,CL 104 mmol/L (98-107); GLUCOSE RANDOM 99 mg/dL (74-106); POTASSIUM,K 3.8 mmol/L (3.5-5.1); SODIUM,NA 140 mmol/L (136-148)
--- NOTE | 2019-03-01 09:29 | PCM48HPAN ---
Post Anesthesia Note - EVALUATION WITHIN 48HRS OF ANESTHETIC Vital Signs in Normal Range: Yes (Heart rates in the 100s to 110s) Patient Participated in Evaluation: Yes Respiratory Function Stable: Yes Airway Patent: Yes Cardiovascular Function Stable: Yes Hydration Status Stable: Yes Pain Control Satisfactory: Yes Nausea and Vomiting Control Satisfactory: Yes Mental Status Recovered: Yes Vital Signs: Last Vital Signs Temp 99.2 F 03/01/19 08:00 Pulse 109 H 02/26/19 18:51 Resp 14 03/01/19 09:15 BP 111/55 L 03/01/19 09:15 Pulse Ox 95 03/01/19 09:15 - COMMENTS/OBSERVATIONS Free Text/Narrative:: Hgb trending down
--- NOTE | 2019-03-01 11:17 | PCM.SURGPN ---
- General Info Date of Service: 03/01/19 Functional Status: Reports: Pain Controlled - Review of Systems General: Reports: No Symptoms Gastrointestinal: Reports: No Symptoms (completely awake and alert, 25 mg narcotics/24 hr, denied abd pain or R lower extremity pain) - Patient Data Vitals - Most Recent: Last Vital Signs Temp 98.6 F 03/01/19 11:00 Pulse 109 H 02/26/19 18:51 Resp 13 03/01/19 11:00 BP 107/64 03/01/19 11:00 Pulse Ox 97 03/01/19 11:00 Weight - Most Recent: 250 lb I&O - Last 24 Hours: Intake & Output 02/28/19 03/01/19 03/01/19 22:59 06:59 14:59 Intake Total 3438 2518 Output Total 4000 1800 Balance -562 718 Lab Results Last 24 Hrs: Laboratory Results - last 24 hr 02/28/19 03/01/19 03/01/19 Range/Units 17:04 05:18 05:30 WBC 8.12 6.71 (4.0-11.0) K/uL RBC 3.42 L 3.06 L (4.50-5.90) M/uL Hgb 9.4 L 8.2 L (13.0-17.0) g/dL Hct 29.7 L 26.4 L (38.0-50.0) % MCV 86.8 86.3 (80.0-98.0) fL MCH 27.5 26.8 L (27.0-32.0) pg MCHC 31.6 31.1 (31.0-37.0) g/dL RDW Std Deviation 40.7 40.2 (28.0-62.0) fl RDW Coeff of Diana 13 13 (11.0-15.0) % Plt Count 139 L 149 L (150-400) K/uL MPV 10.30 10.30 (7.40-12.00) fL Neut % (Auto) 70.6 66.9 (48.0-80.0) % Lymph % (Auto) 16.7 19.2 (16.0-40.0) % [place] % (Auto) 11.9 11.5 (0.0-15.0) % Eos % (Auto) 0.7 2.1 (0.0-7.0) % Baso % (Auto) 0.1 0.3 (0.0-1.5) % Neut # (Auto) 5.7 4.5 (1.4-5.7) K/uL Lymph # (Auto) 1.4 1.3 (0.6-2.4) K/uL [place] # (Auto) 1.0 H 0.8 (0.0-0.8) K/uL Eos # (Auto) 0.1 0.1 (0.0-0.7) K/uL Baso # (Auto) 0.0 0.0 (0.0-0.1) K/uL Nucleated RBC % 0.0 0.0 /100WBC Nucleated RBCs # 0 0 K/uL Sodium 140 (136-148) mmol/L Potassium 3.8 (3.5-5.1) mmol/L Chloride 104 (98-107) mmol/L Carbon Dioxide 28.2 (21.0-32.0) mmol/L BUN 5 L (7.0-18.0) mg/dL Creatinine 0.7 L (0.8-1.3) mg/dL Est Cr Clr Drug Dosing 169.88 mL/min Estimated GFR (MDRD) > 60.0 ml/min Glucose 99 (74-106) mg/dL POC Glucose (60-110) mg/dL Calcium 7.6 L (8.5-10.1) mg/dL Total Bilirubin 1.3 H (0.2-1.0) mg/dL AST 51 H (15-37) IU/L ALT 49 (14-63) IU/L Alkaline Phosphatase 46 (46-116) U/L Total Protein 5.6 L (6.4-8.2) g/dL Albumin 2.3 L (3.4-5.0) g/dL Globulin 3.3 (2.6-4.0) g/dL Albumin/Globulin Ratio 0.7 L (0.9-1.6) 03/01/19 Range/Units 06:10 WBC (4.0-11.0) K/uL RBC (4.50-5.90) M/uL Hgb (13.0-17.0) g/dL Hct (38.0-50.0) % MCV (80.0-98.0) fL MCH (27.0-32.0) pg MCHC (31.0-37.0) g/dL RDW Std Deviation (28.0-62.0) fl RDW Coeff of Diana (11.0-15.0) % Plt Count (150-400) K/uL MPV (7.40-12.00) fL Neut % (Auto) (48.0-80.0) % Lymph % (Auto) (16.0-40.0) % [place] % (Auto) (0.0-15.0) % Eos % (Auto) (0.0-7.0) % Baso % (Auto) (0.0-1.5) % Neut # (Auto) (1.4-5.7) K/uL Lymph # (Auto) (0.6-2.4) K/uL [place] # (Auto) (0.0-0.8) K/uL Eos # (Auto) (0.0-0.7) K/uL Baso # (Auto) (0.0-0.1) K/uL Nucleated RBC % /100WBC Nucleated RBCs # K/uL Sodium (136-148) mmol/L Potassium (3.5-5.1) mmol/L Chloride (98-107) mmol/L Carbon Dioxide (21.0-32.0) mmol/L BUN (7.0-18.0) mg/dL Creatinine (0.8-1.3) mg/dL Est Cr Clr Drug Dosing mL/min Estimated GFR (MDRD) ml/min Glucose (74-106) mg/dL POC Glucose 87 (60-110) mg/dL Calcium (8.5-10.1) mg/dL Total Bilirubin (0.2-1.0) mg/dL AST (15-37) IU/L ALT (14-63) IU/L Alkaline Phosphatase (46-116) U/L Total Protein (6.4-8.2) g/dL Albumin (3.4-5.0) g/dL Globulin (2.6-4.0) g/dL Albumin/Globulin Ratio (0.9-1.6) Med Orders - Current: Current Medications Hydromorphone HCl (Dilaudid) 1 mg IVPUSH Q2H PRN PRN Reason: Pain Last Admin: 02/27/19 22:52 Dose: 1 mg Sodium Chloride (Normal Saline) 1,000 mls @ 125 mls/hr IV ASDIRECTED EVANGELINA Last Admin: 03/01/19 11:00 Dose: 125 mls/hr Ondansetron HCl (Zofran) 4 mg IVPUSH Q8H PRN PRN Reason: Nausea/Vomiting Last Admin: 02/26/19 20:57 Dose: 4 mg Oxycodone/Acetaminophen (Percocet 325-5 Mg) 2 tab PO Q4H PRN PRN Reason: Pain (severe 7-10) Last Admin: 03/01/19 09:30 Dose: 2 tab Phenol/Menthol (Chloraseptic Throat [place]) 0 ml MUCMEM Q2H PRN PRN Reason: Sore Throat Discontinued Medications Albuterol (Proventil Neb Soln) 2.5 mg NEB ONETIME PRN PRN Reason: Wheezing Atropine Sulfate (Atropine 0.1 Mg/Ml) 0.5 mg IVPUSH ASDIRECTED PRN PRN Reason: Hypo-perfusion Atropine Sulfate (Atropine 0.1 Mg/Ml) 1 mg IVPUSH ASDIRECTED PRN PRN Reason: Hypo-Perfusion Cefazolin Sodium (Ancef) Confirm Administered Dose 2 gm .ROUTE .STK-MED ONE Stop: 02/26/19 15:33 Dextrose/Water (Dextrose 50% In Water) 50 ml IVPUSH ASDIRECTED PRN PRN Reason: Hypoglycemia Ephedrine Sulfate (Ephedrine Sulfate) Confirm Administered Dose 50 mg .ROUTE .STK-MED ONE Stop: 02/26/19 15:52 Epinephrine HCl (Epinephrine 1:10,000) 1 mg IVPUSH ASDIRECTED PRN PRN Reason: ACLS Guidelines Fentanyl (Fentanyl) 50 mcg IVPUSH ONETIME ONE Stop: 02/26/19 12:21 Last Admin: 02/26/19 12:57 Dose: Not Given Fentanyl (Sublimaze) Confirm Administered Dose 100 mcg .ROUTE .STK-MED ONE Stop: 02/26/19 12:23 Last Admin: 02/26/19 12:27 Dose: 50 mcg Fentanyl (Sublimaze) Confirm Administered Dose 250 mcg .ROUTE .STK-MED ONE Stop: 02/26/19 14:34 Fentanyl (Sublimaze) 50 - 100 mcg IVPUSH Q5M PRN PRN Reason: Pain Last Admin: 02/26/19 18:35 Dose: 50 mcg Glycopyrrolate (Robinul) Confirm Administered Dose 0.2 mg .ROUTE .STK-MED ONE Stop: 02/26/19 15:55 Hydromorphone HCl (Dilaudid) 2 mg IVPUSH ONETIME ONE Stop: 02/26/19 13:24 Last Admin: 02/26/19 13:33 Dose: 2 mg Hydromorphone HCl (Dilaudid) 2 mg IVPUSH ONETIME ONE Stop: 02/26/19 13:49 Last Admin: 02/26/19 13:53 Dose: 2 mg Hydromorphone HCl (Dilaudid) 2 mg IVPUSH Q2H PRN PRN Reason: pain Last Admin: 02/26/19 23:32 Dose: 2 mg Sodium Chloride (Normal Saline) 1,000 mls @ 999 mls/hr IV .Bolus ONE Stop: 02/26/19 13:20 Last Admin: 02/26/19 13:33 Dose: 999 mls/hr Cefazolin Sodium/Dextrose 2 gm (/ Premix) 50 mls @ 100 mls/hr IV ONETIME ONE Stop: 02/26/19 15:27 Last Admin: 02/26/19 21:39 Dose: Not Given Sodium Chloride (Normal Saline) Confirm Administered Dose 20 mls @ as directed .ROUTE .STK-MED ONE Stop: 02/26/19 15:33 Sodium Chloride (Normal Saline) 1,000 mls @ 150 mls/hr IV ASDIRECTED [facility] Last Admin: 02/27/19 18:42 Dose: 175 mls/hr Cefazolin Sodium/Dextrose 1 gm (/ Premix) 50 mls @ 100 mls/hr IV ONETIME ONE Stop: 02/27/19 00:42 Last Admin: 02/27/19 00:28 Dose: 100 mls/hr Magnesium Sulfate 2 gm/ Premix 50 mls @ 50 mls/hr IV ONETIME ONE Stop: 02/27/19 02:54 Last Admin: 02/27/19 02:01 Dose: 50 mls/hr Cefazolin Sodium/Dextrose 2 gm (/ Premix) 50 mls @ 100 mls/hr IV ONETIME ONE Stop: 02/27/19 11:53 Last Admin: 02/27/19 12:51 Dose: 100 mls/hr Iopamidol (Isovue Multipack-370 (76%)) 100 ml IVPUSH ONETIME ONE Stop: 02/26/19 12:53 Last Admin: 02/26/19 20:09 Dose: 100 ml Iopamidol (Isovue-370 (76%)) 100 ml IVPUSH ONETIME ONE Stop: 02/26/19 20:10 Last Admin: 02/26/19 21:39 Dose: Not Given Iopamidol (Isovue Multipack-370 (76%)) 60 ml IVPUSH ONETIME ONE Stop: 02/27/19 14:02 Last Admin: 02/27/19 14:01 Dose: 60 ml Lidocaine (Xylocaine-Mpf 2%) Confirm Administered Dose 5 ml .ROUTE .STK-MED ONE Stop: 02/26/19 14:34 Midazolam HCl (Versed 1 Mg/Ml) Confirm Administered Dose 2 mg .ROUTE .STK-MED ONE Stop: 02/26/19 14:34 Naloxone HCl (Narcan) 0.1 mg IVPUSH ASDIRECTED PRN PRN Reason: Respiratory Depression Ondansetron HCl (Zofran) 4 mg IVPUSH ONETIME ONE Stop: 02/26/19 13:50 Last Admin: 02/26/19 13:53 Dose: 4 mg Ondansetron HCl (Zofran) Confirm Administered Dose 4 mg .ROUTE .STK-MED ONE Stop: 02/26/19 13:52 Last Admin: 02/26/19 13:54 Dose: Not Given Ondansetron HCl (Zofran) Confirm Administered Dose 4 mg .ROUTE .STK-MED ONE Stop: 02/26/19 14:34 Propofol (Diprivan 20 Ml) Confirm Administered Dose 200 mg .ROUTE .STK-MED ONE Stop: 02/26/19 14:34 Rocuronium [place] (Zemuron) Confirm Administered Dose 100 mg .ROUTE .STK-MED ONE Stop: 02/26/19 14:33 Succinylcholine Chloride (Succinylcholine Chloride) Confirm Administered Dose 200 mg .ROUTE .STK-MED ONE Stop: 02/26/19 14:33 - Exam General: Alert, Oriented Neck: Supple GI/Abdominal Exam: Normal Bowel Sounds, Soft, Non-Tender, No Distention Sepsis Event Note - Evaluation Sepsis Screening Result: No Definite Risk - Focused Exam Vital Signs: Vital Signs Temp Resp BP Pulse Ox 03/01/19 11:00 98.6 F 13 107/64 97 03/01/19 10:00 98.4 F 14 114/52 L 95 03/01/19 09:00 98.2 F 14 111/55 L 95 03/01/19 08:00 99.2 F 13 106/53 L 96 03/01/19 07:00 98.6 F 14 111/59 L 95 03/01/19 06:00 98.6 F 15 115/55 L 95 03/01/19 05:00 16 115/49 L 96 03/01/19 04:00 98.4 F 14 102/56 L 97 03/01/19 03:00 14 115/56 L 98 03/01/19 02:00 16 105/74 96 03/01/19 01:00 20 108/58 L 95 03/01/19 00:00 16 102/62 95 Date Exam was Performed: 03/01/19 Time Exam was Performed: 11:12 - Problem List Review Problem List Initiated/Reviewed/Updated: Yes - My Orders Last 24 Hours: Active Orders 24 hr Category Date Time Status CBC WITH AUTO DIFF [HEME] DAILY Lab 03/01/19 18:00 Ordered HEMOGLOBIN/HEMATOCRIT,HH [HEME] Routine Lab 03/01/19 13:00 Ordered Medication Orders Hydromorphone HCl (Dilaudid) 1 mg IVPUSH Q2H PRN PRN Reason: Pain Last Admin: 02/27/19 22:52 Dose: 1 mg Admin: 02/27/19 18:40 Dose: 1 mg Admin: 02/27/19 12:42 Dose: 1 mg Admin: 02/27/19 06:58 Dose: 1 mg Sodium Chloride (Normal Saline) 1,000 mls @ 125 mls/hr IV ASDIRECTED EVANGELINA Last Admin: 03/01/19 11:00 Dose: 125 mls/hr Infusion: 03/01/19 11:00 Dose: 125 mls/hr Infusion: 03/01/19 10:16 Dose: 125 mls/hr Admin: 03/01/19 05:18 Dose: 175 mls/hr Infusion: 03/01/19 05:17 Dose: 175 mls/hr Admin: 02/28/19 23:34 Dose: 175 mls/hr Infusion: 02/28/19 23:30 Dose: 175 mls/hr Admin: 02/28/19 17:47 Dose: 175 mls/hr Infusion: 02/28/19 11:55 Dose: 175 mls/hr Admin: 02/28/19 06:12 Dose: 175 mls/hr Infusion: 02/28/19 06:12 Dose: 175 mls/hr Admin: 02/28/19 00:50 Dose: 175 mls/hr Ondansetron HCl (Zofran) 4 mg IVPUSH Q8H PRN PRN Reason: Nausea/Vomiting Last Admin: 02/26/19 20:57 Dose: 4 mg Oxycodone/Acetaminophen (Percocet 325-5 Mg) 2 tab PO Q4H PRN PRN Reason: Pain (severe 7-10) Last Admin: 03/01/19 09:30 Dose: 2 tab Admin: 03/01/19 05:30 Dose: 2 tab Admin: 02/28/19 22:08 Dose: 2 tab Admin: 02/28/19 18:03 Dose: 1 tab Admin: 02/28/19 16:59 Dose: 1 tab Admin: 02/28/19 11:58 Dose: 1 tab Admin: 02/28/19 01:43 Dose: 2 tab Phenol/Menthol (Chloraseptic Throat [place]) 0 ml MUCMEM Q2H PRN PRN Reason: Sore Throat - Assessment Assessment (Free Text/Narrative):: h/h continued to trend down; 9.1 > 9.4 > 8.1; tachycard resolved; pain in control; bed flat X 3 days already; only HOB elevated for po; receiving large amt of IVF mainly because of CT contrast X 3, 2 CT a/p, and 1 CT chest for PE. clinically pt looked good; will repeat h/h later today; would like to start him regular diet. trending down h/h likely dilutional. await repeat h/h by noon - Plan Plan (Free Text/Narrative):: h/h continued to trend down; 9.1 > 9.4 > 8.1; tachycard resolved; pain in control; bed flat X 3 days already; only HOB elevated for po; receiving large amt of IVF mainly because of CT contrast X 3, 2 CT a/p, and 1 CT chest for PE. clinically pt looked good; will repeat h/h later today; would like to start him regular diet. trending down h/h likely dilutional. await repeat h/h by noon
[2019-03-01] MEDS: Docusate Sodium 100 MG Cap PO SCH (13:01)
[2019-03-02] MEDS: Sodium Chloride 0.9% 1,000 ML IV SCH (02:47)
[2019-03-02] MEDS: Acetaminophen/oxyCODONE 325-5 MG Tab PO PRN ×3 (04:45→20:41)
--- NOTE | 2019-03-02 08:52 | PCM.SURGPN ---
- General Info Date of Service: 03/02/19 Functional Status: Reports: Pain Controlled - Review of Systems General: Reports: No Symptoms (h/h 8.4 (down from 9.1)) - Patient Data Vitals - Most Recent: Last Vital Signs Temp 98.4 F 03/02/19 07:00 Pulse 82 03/02/19 08:00 Resp 12 03/02/19 08:00 BP 112/56 L 03/02/19 08:00 Pulse Ox 97 03/02/19 08:00 Weight - Most Recent: 249 lb 1.6 oz I&O - Last 24 Hours: Intake & Output 03/01/19 03/02/19 03/02/19 22:59 06:59 14:59 Intake Total 2415 2094 Output Total 3200 2600 Balance -785 -506 Lab Results Last 24 Hrs: Laboratory Results - last 24 hr 02/26/19 03/01/19 03/01/19 Range/Units 13:00 05:30 12:04 WBC 7.68 (4.0-11.0) K/uL RBC 3.24 L (4.50-5.90) M/uL Hgb 9.1 L (13.0-17.0) g/dL Hct 28.1 L (38.0-50.0) % MCV 86.7 (80.0-98.0) fL MCH 28.1 (27.0-32.0) pg MCHC 32.4 (31.0-37.0) g/dL RDW Std Deviation 37.0 (28.0-62.0) fl RDW Coeff of Diana 12 (11.0-15.0) % Plt Count 147 L (150-400) K/uL MPV 10.50 (7.40-12.00) fL Neut % (Auto) 66.9 (48.0-80.0) % Lymph % (Auto) 19.5 (16.0-40.0) % [place] % (Auto) 11.2 (0.0-15.0) % Eos % (Auto) 2.0 (0.0-7.0) % Baso % (Auto) 0.4 (0.0-1.5) % Neut # (Auto) 5.1 (1.4-5.7) K/uL Lymph # (Auto) 1.5 (0.6-2.4) K/uL [place] # (Auto) 0.9 H (0.0-0.8) K/uL Eos # (Auto) 0.2 (0.0-0.7) K/uL Baso # (Auto) 0.0 (0.0-0.1) K/uL Nucleated RBC % /100WBC Nucleated RBCs # K/uL Sodium 140 (136-148) mmol/L Potassium 3.8 (3.5-5.1) mmol/L Chloride 104 (98-107) mmol/L Carbon Dioxide 28.2 (21.0-32.0) mmol/L BUN 5 L (7.0-18.0) mg/dL Creatinine 0.7 L (0.8-1.3) mg/dL Est Cr Clr Drug Dosing 169.88 mL/min Estimated GFR (MDRD) > 60.0 ml/min Glucose 99 (74-106) mg/dL Calcium 7.6 L (8.5-10.1) mg/dL Total Bilirubin 1.3 H (0.2-1.0) mg/dL AST 51 H (15-37) IU/L ALT 49 (14-63) IU/L Alkaline Phosphatase 46 (46-116) U/L Total Protein 5.6 L (6.4-8.2) g/dL Albumin 2.3 L (3.4-5.0) g/dL Globulin 3.3 (2.6-4.0) g/dL Albumin/Globulin Ratio 0.7 L (0.9-1.6) Crossmatch See Detail 03/01/19 03/02/19 Range/Units 17:47 07:12 WBC 6.37 6.09 (4.0-11.0) K/uL RBC 3.19 L 3.07 L (4.50-5.90) M/uL Hgb 8.7 L 8.4 L (13.0-17.0) g/dL Hct 27.5 L 26.0 L (38.0-50.0) % MCV 86.2 84.7 (80.0-98.0) fL MCH 27.3 27.4 (27.0-32.0) pg MCHC 31.6 32.3 (31.0-37.0) g/dL RDW Std Deviation 39.5 38.7 (28.0-62.0) fl RDW Coeff of Diana 13 13 (11.0-15.0) % Plt Count 164 189 (150-400) K/uL MPV 10.50 10.10 (7.40-12.00) fL Neut % (Auto) 68.6 67.5 (48.0-80.0) % Lymph % (Auto) 18.5 18.7 (16.0-40.0) % [place] % (Auto) 10.5 11.5 (0.0-15.0) % Eos % (Auto) 2.2 2.1 (0.0-7.0) % Baso % (Auto) 0.2 0.2 (0.0-1.5) % Neut # (Auto) 4.4 4.1 (1.4-5.7) K/uL Lymph # (Auto) 1.2 1.1 (0.6-2.4) K/uL [place] # (Auto) 0.7 0.7 (0.0-0.8) K/uL Eos # (Auto) 0.1 0.1 (0.0-0.7) K/uL Baso # (Auto) 0.0 0.0 (0.0-0.1) K/uL Nucleated RBC % 0.0 0.0 /100WBC Nucleated RBCs # 0 0 K/uL Sodium (136-148) mmol/L Potassium (3.5-5.1) mmol/L Chloride (98-107) mmol/L Carbon Dioxide (21.0-32.0) mmol/L BUN (7.0-18.0) mg/dL Creatinine (0.8-1.3) mg/dL Est Cr Clr Drug Dosing mL/min Estimated GFR (MDRD) ml/min Glucose (74-106) mg/dL Calcium (8.5-10.1) mg/dL Total Bilirubin (0.2-1.0) mg/dL AST (15-37) IU/L ALT (14-63) IU/L Alkaline Phosphatase (46-116) U/L Total Protein (6.4-8.2) g/dL Albumin (3.4-5.0) g/dL Globulin (2.6-4.0) g/dL Albumin/Globulin Ratio (0.9-1.6) Crossmatch Med Orders - Current: Current Medications Docusate Sodium (Colace) 100 mg PO DAILY [facility] Last Admin: 03/01/19 13:01 Dose: 100 mg Hydromorphone HCl (Dilaudid) 1 mg IVPUSH Q2H PRN PRN Reason: Pain Last Admin: 02/27/19 22:52 Dose: 1 mg Sodium Chloride (Normal Saline) 1,000 mls @ 125 mls/hr IV ASDIRECTED [facility]ANGELINA Last Admin: 03/02/19 02:47 Dose: 125 mls/hr Ondansetron HCl (Zofran) 4 mg IVPUSH Q8H PRN PRN Reason: Nausea/Vomiting Last Admin: 02/26/19 20:57 Dose: 4 mg Oxycodone/Acetaminophen (Percocet 325-5 Mg) 2 tab PO Q4H PRN PRN Reason: Pain (severe 7-10) Last Admin: 03/02/19 04:45 Dose: 2 tab Phenol/Menthol (Chloraseptic Throat [place]) 0 ml MUCMEM Q2H PRN PRN Reason: Sore Throat Discontinued Medications Albuterol (Proventil Neb Soln) 2.5 mg NEB ONETIME PRN PRN Reason: Wheezing Atropine Sulfate (Atropine 0.1 Mg/Ml) 0.5 mg IVPUSH ASDIRECTED PRN PRN Reason: Hypo-perfusion Atropine Sulfate (Atropine 0.1 Mg/Ml) 1 mg IVPUSH ASDIRECTED PRN PRN Reason: Hypo-Perfusion Cefazolin Sodium (Ancef) Confirm Administered Dose 2 gm .ROUTE .STK-MED ONE Stop: 02/26/19 15:33 Dextrose/Water (Dextrose 50% In Water) 50 ml IVPUSH ASDIRECTED PRN PRN Reason: Hypoglycemia Ephedrine Sulfate (Ephedrine Sulfate) Confirm Administered Dose 50 mg .ROUTE .STK-MED ONE Stop: 02/26/19 15:52 Epinephrine HCl (Epinephrine 1:10,000) 1 mg IVPUSH ASDIRECTED PRN PRN Reason: ACLS Guidelines Fentanyl (Fentanyl) 50 mcg IVPUSH ONETIME ONE Stop: 02/26/19 12:21 Last Admin: 02/26/19 12:57 Dose: Not Given Fentanyl (Sublimaze) Confirm Administered Dose 100 mcg .ROUTE .STK-MED ONE Stop: 02/26/19 12:23 Last Admin: 02/26/19 12:27 Dose: 50 mcg Fentanyl (Sublimaze) Confirm Administered Dose 250 mcg .ROUTE .STK-MED ONE Stop: 02/26/19 14:34 Fentanyl (Sublimaze) 50 - 100 mcg IVPUSH Q5M PRN PRN Reason: Pain Last Admin: 02/26/19 18:35 Dose: 50 mcg Glycopyrrolate (Robinul) Confirm Administered Dose 0.2 mg .ROUTE .STK-MED ONE Stop: 02/26/19 15:55 Hydromorphone HCl (Dilaudid) 2 mg IVPUSH ONETIME ONE Stop: 02/26/19 13:24 Last Admin: 02/26/19 13:33 Dose: 2 mg Hydromorphone HCl (Dilaudid) 2 mg IVPUSH ONETIME ONE Stop: 02/26/19 13:49 Last Admin: 02/26/19 13:53 Dose: 2 mg Hydromorphone HCl (Dilaudid) 2 mg IVPUSH Q2H PRN PRN Reason: pain Last Admin: 02/26/19 23:32 Dose: 2 mg Sodium Chloride (Normal Saline) 1,000 mls @ 999 mls/hr IV .Bolus ONE Stop: 02/26/19 13:20 Last Admin: 02/26/19 13:33 Dose: 999 mls/hr Cefazolin Sodium/Dextrose 2 gm (/ Premix) 50 mls @ 100 mls/hr IV ONETIME ONE Stop: 02/26/19 15:27 Last Admin: 02/26/19 21:39 Dose: Not Given Sodium Chloride (Normal Saline) Confirm Administered Dose 20 mls @ as directed .ROUTE .STK-MED ONE Stop: 02/26/19 15:33 Sodium Chloride (Normal Saline) 1,000 mls @ 150 mls/hr IV ASDIRECTED [facility] Last Admin: 02/27/19 18:42 Dose: 175 mls/hr Cefazolin Sodium/Dextrose 1 gm (/ Premix) 50 mls @ 100 mls/hr IV ONETIME ONE Stop: 02/27/19 00:42 Last Admin: 02/27/19 00:28 Dose: 100 mls/hr Magnesium Sulfate 2 gm/ Premix 50 mls @ 50 mls/hr IV ONETIME ONE Stop: 02/27/19 02:54 Last Admin: 02/27/19 02:01 Dose: 50 mls/hr Cefazolin Sodium/Dextrose 2 gm (/ Premix) 50 mls @ 100 mls/hr IV ONETIME ONE Stop: 02/27/19 11:53 Last Admin: 02/27/19 12:51 Dose: 100 mls/hr Iopamidol (Isovue Multipack-370 (76%)) 100 ml IVPUSH ONETIME ONE Stop: 02/26/19 12:53 Last Admin: 02/26/19 20:09 Dose: 100 ml Iopamidol (Isovue-370 (76%)) 100 ml IVPUSH ONETIME ONE Stop: 02/26/19 20:10 Last Admin: 02/26/19 21:39 Dose: Not Given Iopamidol (Isovue Multipack-370 (76%)) 60 ml IVPUSH ONETIME ONE Stop: 02/27/19 14:02 Last Admin: 02/27/19 14:01 Dose: 60 ml Lidocaine (Xylocaine-Mpf 2%) Confirm Administered Dose 5 ml .ROUTE .STK-MED ONE Stop: 02/26/19 14:34 Midazolam HCl (Versed 1 Mg/Ml) Confirm Administered Dose 2 mg .ROUTE .STK-MED ONE Stop: 02/26/19 14:34 Naloxone HCl (Narcan) 0.1 mg IVPUSH ASDIRECTED PRN PRN Reason: Respiratory Depression Ondansetron HCl (Zofran) 4 mg IVPUSH ONETIME ONE Stop: 02/26/19 13:50 Last Admin: 02/26/19 13:53 Dose: 4 mg Ondansetron HCl (Zofran) Confirm Administered Dose 4 mg .ROUTE .STK-MED ONE Stop: 02/26/19 13:52 Last Admin: 02/26/19 13:54 Dose: Not Given Ondansetron HCl (Zofran) Confirm Administered Dose 4 mg .ROUTE .STK-MED ONE Stop: 02/26/19 14:34 Propofol (Diprivan 20 Ml) Confirm Administered Dose 200 mg .ROUTE .STK-MED ONE Stop: 02/26/19 14:34 Rocuronium [place] (Zemuron) Confirm Administered Dose 100 mg .ROUTE .STK-MED ONE Stop: 02/26/19 14:33 Succinylcholine Chloride (Succinylcholine Chloride) Confirm Administered Dose 200 mg .ROUTE .STK-MED ONE Stop: 02/26/19 14:33 - Exam General: Alert, Oriented Neck: Supple GI/Abdominal Exam: Normal Bowel Sounds, Soft, No Distention Sepsis Event Note - Evaluation Sepsis Screening Result: No Definite Risk - Focused Exam Vital Signs: Vital Signs Temp Pulse Resp BP Pulse Ox 03/02/19 08:00 82 12 112/56 L 97 03/02/19 07:00 98.4 F 76 13 108/57 L 96 03/02/19 06:00 13 106/47 L 95 03/02/19 05:00 18 113/47 L 95 03/02/19 04:00 99 F 12 123/58 L 97 03/02/19 03:00 16 118/62 95 03/02/19 02:00 14 114/61 97 03/02/19 01:00 20 120/60 95 03/02/19 00:00 98.4 F 19 118/59 L 93 L 03/01/19 23:00 15 123/60 96 03/01/19 22:00 13 110/68 92 L 03/01/19 21:00 17 119/61 94 L Date Exam was Performed: 03/02/19 Time Exam was Performed: 08:47 - Problem List Review Problem List Initiated/Reviewed/Updated: Yes - My Orders Last 24 Hours: Active Orders 24 hr Category Date Time Status PT Evaluation and Treatment [CONS] Routine Cons 03/01/19 14:52 Active Regular Diet [DIET] Diet 03/01/19 Dinner Active Regular Diet [DIET] Diet 03/01/19 Dinner Active Docusate Sodium [Colace] Med 03/01/19 12:45 Active 100 mg PO DAILY Weight bearing status [OM.PC] Routine Oth 03/01/19 14:52 Ordered Medication Orders Docusate Sodium (Colace) 100 mg PO DAILY [facility]ANGELINA Last Admin: 03/01/19 13:01 Dose: 100 mg Hydromorphone HCl (Dilaudid) 1 mg IVPUSH Q2H PRN PRN Reason: Pain Last Admin: 02/27/19 22:52 Dose: 1 mg Admin: 02/27/19 18:40 Dose: 1 mg Admin: 02/27/19 12:42 Dose: 1 mg Admin: 02/27/19 06:58 Dose: 1 mg Sodium Chloride (Normal Saline) 1,000 mls @ 125 mls/hr IV ASDIRECTED EVANGELINA Last Admin: 03/02/19 02:47 Dose: 125 mls/hr Infusion: 03/02/19 02:44 Dose: 125 mls/hr Admin: 03/01/19 18:44 Dose: 125 mls/hr Infusion: 03/01/19 18:44 Dose: 125 mls/hr Admin: 03/01/19 11:00 Dose: 125 mls/hr Infusion: 03/01/19 11:00 Dose: 125 mls/hr Infusion: 03/01/19 10:16 Dose: 125 mls/hr Admin: 03/01/19 05:18 Dose: 175 mls/hr Infusion: 03/01/19 05:17 Dose: 175 mls/hr Admin: 02/28/19 23:34 Dose: 175 mls/hr Infusion: 02/28/19 23:30 Dose: 175 mls/hr Admin: 02/28/19 17:47 Dose: 175 mls/hr Infusion: 02/28/19 11:55 Dose: 175 mls/hr Admin: 02/28/19 06:12 Dose: 175 mls/hr Infusion: 02/28/19 06:12 Dose: 175 mls/hr Admin: 02/28/19 00:50 Dose: 175 mls/hr Ondansetron HCl (Zofran) 4 mg IVPUSH Q8H PRN PRN Reason: Nausea/Vomiting Last Admin: 02/26/19 20:57 Dose: 4 mg Oxycodone/Acetaminophen (Percocet 325-5 Mg) 2 tab PO Q4H PRN PRN Reason: Pain (severe 7-10) Last Admin: 03/02/19 04:45 Dose: 2 tab Admin: 03/01/19 20:21 Dose: 2 tab Admin: 03/01/19 09:30 Dose: 2 tab Admin: 03/01/19 05:30 Dose: 2 tab Admin: 02/28/19 22:08 Dose: 2 tab Admin: 02/28/19 18:03 Dose: 1 tab Admin: 02/28/19 16:59 Dose: 1 tab Admin: 02/28/19 11:58 Dose: 1 tab Admin: 02/28/19 01:43 Dose: 2 tab Phenol/Menthol (Chloraseptic Throat [place]) 0 ml MUCMEM Q2H PRN PRN Reason: Sore Throat - Assessment Assessment (Free Text/Narrative):: doing well, transfer to floor on telemetry; continue regular diet; PT, weigh bearing status per ortho; possible home in the am; no strenuous exercise, avoid lifting > 10 lb ; heplock ivf, encourage po fluid intake, at least 1 1/2 bottle a day - Plan Plan (Free Text/Narrative):: doing well, transfer to floor on telemetry; continue regular diet; PT, weigh bearing status per ortho; possible home in the am; no strenuous exercise, avoid lifting > 10 lb ; heplock ivf, encourage po fluid intake, at least 1 1/2 bottle a day
[2019-03-02] MEDS: Docusate Sodium 100 MG Cap PO SCH (09:33)
[2019-03-02] MEDS: Ondansetron 4 MG/2 ML SDV IVPUSH PRN ×2 (14:45→20:40)
[2019-03-02] MEDS: Bisacodyl 10 MG Supp RECTAL ONE (19:48)
[2019-03-03] MEDS: Docusate Sodium 100 MG Cap PO SCH (09:29)
[2019-03-03] MEDS: Acetaminophen/oxyCODONE 325-5 MG Tab PO PRN ×2 (09:29→19:47)
--- NOTE | 2019-03-03 10:07 | PCM.SURGPN ---
- General Info Date of Service: 03/03/19 Functional Status: Reports: Pain Controlled (fidel po, h/h stable at 9.2; wbat w crutch per ortho) - Patient Data Vitals - Most Recent: Last Vital Signs Temp 98.4 F 03/03/19 07:12 Pulse 94 03/03/19 07:12 Resp 16 03/03/19 07:12 BP 110/63 03/03/19 07:12 Pulse Ox 94 L 03/03/19 07:12 Weight - Most Recent: 246 lb 14.4 oz I&O - Last 24 Hours: Intake & Output 03/02/19 03/03/19 03/03/19 22:59 06:59 14:59 Intake Total 1090 860 Output Total 1800 975 Balance -710 -115 Lab Results Last 24 Hrs: Laboratory Results - last 24 hr 03/03/19 Range/Units 09:10 WBC 6.78 (4.0-11.0) K/uL RBC 3.38 L (4.50-5.90) M/uL Hgb 9.2 L (13.0-17.0) g/dL Hct 28.6 L (38.0-50.0) % MCV 84.6 (80.0-98.0) fL MCH 27.2 (27.0-32.0) pg MCHC 32.2 (31.0-37.0) g/dL RDW Std Deviation 39.5 (28.0-62.0) fl RDW Coeff of [place] 13 (11.0-15.0) % Plt Count 224 (150-400) K/uL MPV 9.90 (7.40-12.00) fL Neut % (Auto) 64.1 (48.0-80.0) % Lymph % (Auto) 19.9 (16.0-40.0) % [place] % (Auto) 13.3 (0.0-15.0) % Eos % (Auto) 2.4 (0.0-7.0) % Baso % (Auto) 0.3 (0.0-1.5) % Neut # (Auto) 4.4 (1.4-5.7) K/uL Lymph # (Auto) 1.4 (0.6-2.4) K/uL [place] # (Auto) 0.9 H (0.0-0.8) K/uL Eos # (Auto) 0.2 (0.0-0.7) K/uL Baso # (Auto) 0.0 (0.0-0.1) K/uL Nucleated RBC % 0.6 /100WBC Nucleated RBCs # 0 K/uL Med Orders - Current: Current Medications Docusate Sodium (Colace) 100 mg PO DAILY [facility]ELINA Last Admin: 03/03/19 09:29 Dose: 100 mg Hydromorphone HCl (Dilaudid) 1 mg IVPUSH Q2H PRN PRN Reason: Pain Last Admin: 02/27/19 22:52 Dose: 1 mg Ondansetron HCl (Zofran) 4 mg IVPUSH Q8H PRN PRN Reason: Nausea/Vomiting Last Admin: 03/02/19 20:40 Dose: 4 mg Oxycodone/Acetaminophen (Percocet 325-5 Mg) 2 tab PO Q4H PRN PRN Reason: Pain (severe 7-10) Last Admin: 03/03/19 09:29 Dose: 2 tab Phenol/Menthol (Chloraseptic Throat [place]) 0 ml MUCMEM Q2H PRN PRN Reason: Sore Throat Discontinued Medications Albuterol (Proventil Neb Soln) 2.5 mg NEB ONETIME PRN PRN Reason: Wheezing Atropine Sulfate (Atropine 0.1 Mg/Ml) 0.5 mg IVPUSH ASDIRECTED PRN PRN Reason: Hypo-perfusion Atropine Sulfate (Atropine 0.1 Mg/Ml) 1 mg IVPUSH ASDIRECTED PRN PRN Reason: Hypo-Perfusion Bisacodyl (Dulcolax) 10 mg RECTAL ONETIME ONE Stop: 03/02/19 17:02 Cefazolin Sodium (Ancef) Confirm Administered Dose 2 gm .ROUTE .STK-MED ONE Stop: 02/26/19 15:33 Dextrose/Water (Dextrose 50% In Water) 50 ml IVPUSH ASDIRECTED PRN PRN Reason: Hypoglycemia Ephedrine Sulfate (Ephedrine Sulfate) Confirm Administered Dose 50 mg .ROUTE .STK-MED ONE Stop: 02/26/19 15:52 Epinephrine HCl (Epinephrine 1:10,000) 1 mg IVPUSH ASDIRECTED PRN PRN Reason: ACLS Guidelines Fentanyl (Fentanyl) 50 mcg IVPUSH ONETIME ONE Stop: 02/26/19 12:21 Last Admin: 02/26/19 12:57 Dose: Not Given Fentanyl (Sublimaze) Confirm Administered Dose 100 mcg .ROUTE .STK-MED ONE Stop: 02/26/19 12:23 Last Admin: 02/26/19 12:27 Dose: 50 mcg Fentanyl (Sublimaze) Confirm Administered Dose 250 mcg .ROUTE .STK-MED ONE Stop: 02/26/19 14:34 Fentanyl (Sublimaze) 50 - 100 mcg IVPUSH Q5M PRN PRN Reason: Pain Last Admin: 02/26/19 18:35 Dose: 50 mcg Glycopyrrolate (Robinul) Confirm Administered Dose 0.2 mg .ROUTE .STK-MED ONE Stop: 02/26/19 15:55 Hydromorphone HCl (Dilaudid) 2 mg IVPUSH ONETIME ONE Stop: 02/26/19 13:24 Last Admin: 02/26/19 13:33 Dose: 2 mg Hydromorphone HCl (Dilaudid) 2 mg IVPUSH ONETIME ONE Stop: 02/26/19 13:49 Last Admin: 02/26/19 13:53 Dose: 2 mg Hydromorphone HCl (Dilaudid) 2 mg IVPUSH Q2H PRN PRN Reason: pain Last Admin: 02/26/19 23:32 Dose: 2 mg Sodium Chloride (Normal Saline) 1,000 mls @ 999 mls/hr IV .Bolus ONE Stop: 02/26/19 13:20 Last Admin: 02/26/19 13:33 Dose: 999 mls/hr Cefazolin Sodium/Dextrose 2 gm (/ Premix) 50 mls @ 100 mls/hr IV ONETIME ONE Stop: 02/26/19 15:27 Last Admin: 02/26/19 21:39 Dose: Not Given Sodium Chloride (Normal Saline) Confirm Administered Dose 20 mls @ as directed .ROUTE .STK-MED ONE Stop: 02/26/19 15:33 Sodium Chloride (Normal Saline) 1,000 mls @ 150 mls/hr IV ASDIRECTED [facility]ANGELINA Last Admin: 02/27/19 18:42 Dose: 175 mls/hr Cefazolin Sodium/Dextrose 1 gm (/ Premix) 50 mls @ 100 mls/hr IV ONETIME ONE Stop: 02/27/19 00:42 Last Admin: 02/27/19 00:28 Dose: 100 mls/hr Magnesium Sulfate 2 gm/ Premix 50 mls @ 50 mls/hr IV ONETIME ONE Stop: 02/27/19 02:54 Last Admin: 02/27/19 02:01 Dose: 50 mls/hr Cefazolin Sodium/Dextrose 2 gm (/ Premix) 50 mls @ 100 mls/hr IV ONETIME ONE Stop: 02/27/19 11:53 Last Admin: 02/27/19 12:51 Dose: 100 mls/hr Sodium Chloride (Normal Saline) 1,000 mls @ 125 mls/hr IV ASDIRECTED EVANGELINA Last Admin: 03/02/19 02:47 Dose: 125 mls/hr Iopamidol (Isovue Multipack-370 (76%)) 100 ml IVPUSH ONETIME ONE Stop: 02/26/19 12:53 Last Admin: 02/26/19 20:09 Dose: 100 ml Iopamidol (Isovue-370 (76%)) 100 ml IVPUSH ONETIME ONE Stop: 02/26/19 20:10 Last Admin: 02/26/19 21:39 Dose: Not Given Iopamidol (Isovue Multipack-370 (76%)) 60 ml IVPUSH ONETIME ONE Stop: 02/27/19 14:02 Last Admin: 02/27/19 14:01 Dose: 60 ml Lidocaine (Xylocaine-Mpf 2%) Confirm Administered Dose 5 ml .ROUTE .STK-MED ONE Stop: 02/26/19 14:34 Midazolam HCl (Versed 1 Mg/Ml) Confirm Administered Dose 2 mg .ROUTE .STK-MED ONE Stop: 02/26/19 14:34 Naloxone HCl (Narcan) 0.1 mg IVPUSH ASDIRECTED PRN PRN Reason: Respiratory Depression Ondansetron HCl (Zofran) 4 mg IVPUSH ONETIME ONE Stop: 02/26/19 13:50 Last Admin: 02/26/19 13:53 Dose: 4 mg Ondansetron HCl (Zofran) Confirm Administered Dose 4 mg .ROUTE .STK-MED ONE Stop: 02/26/19 13:52 Last Admin: 02/26/19 13:54 Dose: Not Given Ondansetron HCl (Zofran) Confirm Administered Dose 4 mg .ROUTE .STK-MED ONE Stop: 02/26/19 14:34 Propofol (Diprivan 20 Ml) Confirm Administered Dose 200 mg .ROUTE .STK-MED ONE Stop: 02/26/19 14:34 Rocuronium [place] (Zemuron) Confirm Administered Dose 100 mg .ROUTE .STK-MED ONE Stop: 02/26/19 14:33 Succinylcholine Chloride (Succinylcholine Chloride) Confirm Administered Dose 200 mg .ROUTE .STK-MED ONE Stop: 02/26/19 14:33 - Exam Wound/Incisions: Healing Well General: Alert, Oriented Neck: Supple GI/Abdominal Exam: Normal Bowel Sounds, Soft, Non-Tender, No Distention Sepsis Event Note - Evaluation Sepsis Screening Result: No Definite Risk - Focused Exam Vital Signs: Vital Signs Temp Pulse Pulse Resp BP Pulse Ox 03/03/19 07:12 98.4 F 94 16 110/63 94 L 03/03/19 04:00 97.8 F 87 17 123/72 96 03/03/19 00:00 97.6 F 97 16 116/58 L 93 L Date Exam was Performed: 03/03/19 Time Exam was Performed: 10:03 - Problem List Review Problem List Initiated/Reviewed/Updated: Yes - My Orders Last 24 Hours: Active Orders 24 hr Category Date Time Status Communication Order [RC] PRN Care 03/02/19 17:03 Active Communication Order [RC] PRN Care 03/03/19 09:23 Active DC Busch Catheter [Urinary Catheter Removal] [] Care 03/02/19 16:00 Active ASDIRECTED Telemetry Monitoring [Cardiac Monitoring] [] Q8H Care 03/02/19 14:00 Active Medication Orders Docusate Sodium (Colace) 100 mg PO DAILY [facility]ANGELINA Last Admin: 03/03/19 09:29 Dose: 100 mg Admin: 03/02/19 09:33 Dose: 100 mg Admin: 03/01/19 13:01 Dose: 100 mg Hydromorphone HCl (Dilaudid) 1 mg IVPUSH Q2H PRN PRN Reason: Pain Last Admin: 02/27/19 22:52 Dose: 1 mg Admin: 02/27/19 18:40 Dose: 1 mg Admin: 02/27/19 12:42 Dose: 1 mg Admin: 02/27/19 06:58 Dose: 1 mg Ondansetron HCl (Zofran) 4 mg IVPUSH Q8H PRN PRN Reason: Nausea/Vomiting Last Admin: 03/02/19 20:40 Dose: 4 mg Admin: 03/02/19 14:45 Dose: 4 mg Admin: 02/26/19 20:57 Dose: 4 mg Oxycodone/Acetaminophen (Percocet 325-5 Mg) 2 tab PO Q4H PRN PRN Reason: Pain (severe 7-10) Last Admin: 03/03/19 09:29 Dose: 2 tab Admin: 03/02/19 20:41 Dose: 2 tab Admin: 03/02/19 09:32 Dose: 2 tab Admin: 03/02/19 04:45 Dose: 2 tab Admin: 03/01/19 20:21 Dose: 2 tab Admin: 03/01/19 09:30 Dose: 2 tab Admin: 03/01/19 05:30 Dose: 2 tab Admin: 02/28/19 22:08 Dose: 2 tab Admin: 02/28/19 18:03 Dose: 1 tab Admin: 02/28/19 16:59 Dose: 1 tab Admin: 02/28/19 11:58 Dose: 1 tab Admin: 02/28/19 01:43 Dose: 2 tab Phenol/Menthol (Chloraseptic Throat [place]) 0 ml MUCMEM Q2H PRN PRN Reason: Sore Throat - Assessment Assessment (Free Text/Narrative):: h/h stable X 4 days since trauma, liver lac is resolving; fidel po; avss; R leg trauma per ortho; plan PT in the morning, and dc home afterward; would excuse from work 3 wks; and pt should refrain from strenuous exercise X 2 weeks; dc home w script for pain meds and fu appointments, crutch - Plan Plan (Free Text/Narrative):: h/h stable X 4 days since trauma, liver lac is resolving; fidel po; avss; R leg trauma per ortho; plan PT in the morning, and dc home afterward; would excuse from work 3 wks; and pt should refrain from strenuous exercise X 2 weeks; dc home w script for pain meds and fu appointments, crutch
[2019-03-03] MEDS: Bisacodyl 10 MG Supp RECTAL ONE (13:42)
[2019-03-03] MEDS: Ondansetron 4 MG/2 ML SDV IVPUSH PRN (16:43)
[2019-03-04] MEDS: Docusate Sodium 100 MG Cap PO SCH (08:26)
[2019-03-04] MEDS: Acetaminophen/oxyCODONE 325-5 MG Tab PO PRN ×2 (08:38→09:28)
[2019-03-04] MEDS: Acetaminophen/HYDROcodone 325-7.5 MG Tab PO PRN ×2 (11:58→20:54)
--- NOTE | 2019-03-04 21:09 | PCM.SURGPN ---
- General Info Date of Service: 03/04/19 POD#: 7 Post-Op Diagnosis: liver lac and R femur fx Functional Status: Reports: Pain Controlled - Review of Systems General: Reports: No Symptoms Gastrointestinal: Reports: No Symptoms (fidel po) - Patient Data Vitals - Most Recent: Last Vital Signs Temp 99.0 F 03/04/19 16:00 Pulse 80 03/04/19 16:00 Resp 16 03/04/19 16:00 BP 116/64 03/04/19 16:00 Pulse Ox 93 L 03/04/19 16:00 Weight - Most Recent: 246 lb 10.803 oz I&O - Last 24 Hours: Intake & Output 03/04/19 03/04/19 03/04/19 06:59 14:59 22:59 Intake Total 910 1100 Output Total 1050 900 Balance -140 200 Med Orders - Current: Current Medications Hydrocodone Bitart/Acetaminophen ([place] 325-7.5 Mg) 1 tab PO Q8H PRN PRN Reason: Pain Last Admin: 03/04/19 20:54 Dose: 1 tab Docusate Sodium (Colace) 100 mg PO DAILY EVANGELINA Last Admin: 03/04/19 08:26 Dose: 100 mg Hydromorphone HCl (Dilaudid) 1 mg IVPUSH Q2H PRN PRN Reason: Pain Last Admin: 02/27/19 22:52 Dose: 1 mg Ondansetron HCl (Zofran) 4 mg IVPUSH Q8H PRN PRN Reason: Nausea/Vomiting Last Admin: 03/03/19 16:43 Dose: 4 mg Phenol/Menthol (Chloraseptic Throat [place]) 0 ml MUCMEM Q2H PRN PRN Reason: Sore Throat Discontinued Medications Albuterol (Proventil Neb Soln) 2.5 mg NEB ONETIME PRN PRN Reason: Wheezing Atropine Sulfate (Atropine 0.1 Mg/Ml) 0.5 mg IVPUSH ASDIRECTED PRN PRN Reason: Hypo-perfusion Atropine Sulfate (Atropine 0.1 Mg/Ml) 1 mg IVPUSH ASDIRECTED PRN PRN Reason: Hypo-Perfusion Bisacodyl (Dulcolax) 10 mg RECTAL ONETIME ONE Stop: 03/02/19 17:02 Last Admin: 03/03/19 13:42 Dose: Not Given Cefazolin Sodium (Ancef) Confirm Administered Dose 2 gm .ROUTE .STK-MED ONE Stop: 02/26/19 15:33 Dextrose/Water (Dextrose 50% In Water) 50 ml IVPUSH ASDIRECTED PRN PRN Reason: Hypoglycemia Ephedrine Sulfate (Ephedrine Sulfate) Confirm Administered Dose 50 mg .ROUTE .STK-MED ONE Stop: 02/26/19 15:52 Epinephrine HCl (Epinephrine 1:10,000) 1 mg IVPUSH ASDIRECTED PRN PRN Reason: ACLS Guidelines Fentanyl (Fentanyl) 50 mcg IVPUSH ONETIME ONE Stop: 02/26/19 12:21 Last Admin: 02/26/19 12:57 Dose: Not Given Fentanyl (Sublimaze) Confirm Administered Dose 100 mcg .ROUTE .STK-MED ONE Stop: 02/26/19 12:23 Last Admin: 02/26/19 12:27 Dose: 50 mcg Fentanyl (Sublimaze) Confirm Administered Dose 250 mcg .ROUTE .STK-MED ONE Stop: 02/26/19 14:34 Fentanyl (Sublimaze) 50 - 100 mcg IVPUSH Q5M PRN PRN Reason: Pain Last Admin: 02/26/19 18:35 Dose: 50 mcg Glycopyrrolate (Robinul) Confirm Administered Dose 0.2 mg .ROUTE .STK-MED ONE Stop: 02/26/19 15:55 Hydromorphone HCl (Dilaudid) 2 mg IVPUSH ONETIME ONE Stop: 02/26/19 13:24 Last Admin: 02/26/19 13:33 Dose: 2 mg Hydromorphone HCl (Dilaudid) 2 mg IVPUSH ONETIME ONE Stop: 02/26/19 13:49 Last Admin: 02/26/19 13:53 Dose: 2 mg Hydromorphone HCl (Dilaudid) 2 mg IVPUSH Q2H PRN PRN Reason: pain Last Admin: 02/26/19 23:32 Dose: 2 mg Sodium Chloride (Normal Saline) 1,000 mls @ 999 mls/hr IV .Bolus ONE Stop: 02/26/19 13:20 Last Admin: 02/26/19 13:33 Dose: 999 mls/hr Cefazolin Sodium/Dextrose 2 gm (/ Premix) 50 mls @ 100 mls/hr IV ONETIME ONE Stop: 02/26/19 15:27 Last Admin: 02/26/19 21:39 Dose: Not Given Sodium Chloride (Normal Saline) Confirm Administered Dose 20 mls @ as directed .ROUTE .STK-MED ONE Stop: 02/26/19 15:33 Sodium Chloride (Normal Saline) 1,000 mls @ 150 mls/hr IV ASDIRECTED [facility] Last Admin: 02/27/19 18:42 Dose: 175 mls/hr Cefazolin Sodium/Dextrose 1 gm (/ Premix) 50 mls @ 100 mls/hr IV ONETIME ONE Stop: 02/27/19 00:42 Last Admin: 02/27/19 00:28 Dose: 100 mls/hr Magnesium Sulfate 2 gm/ Premix 50 mls @ 50 mls/hr IV ONETIME ONE Stop: 02/27/19 02:54 Last Admin: 02/27/19 02:01 Dose: 50 mls/hr Cefazolin Sodium/Dextrose 2 gm (/ Premix) 50 mls @ 100 mls/hr IV ONETIME ONE Stop: 02/27/19 11:53 Last Admin: 02/27/19 12:51 Dose: 100 mls/hr Sodium Chloride (Normal Saline) 1,000 [facility]ls [facility] Last Admin: 03/02/19 02:47 Dose: 125 mls/hr Iopamidol (Isovue Multipack-370 (76%)) 100 ml IVPUSH ONETIME ONE Stop: 02/26/19 12:53 Last Admin: 02/26/19 20:09 Dose: 100 ml Iopamidol (Isovue-370 (76%)) 100 ml IVPUSH ONETIME ONE Stop: 02/26/19 20:10 Last Admin: 02/26/19 21:39 Dose: Not Given Iopamidol (Isovue Multipack-370 (76%)) 60 ml IVPUSH ONETIME ONE Stop: 02/27/19 14:02 Last Admin: 02/27/19 14:01 Dose: 60 ml Lidocaine (Xylocaine-Mpf 2%) Confirm Administered Dose 5 ml .ROUTE .STK-MED ONE Stop: 02/26/19 14:34 Midazolam HCl (Versed 1 Mg/Ml) Confirm Administered Dose 2 mg .ROUTE .STK-MED ONE Stop: 02/26/19 14:34 Naloxone HCl (Narcan) 0.1 mg IVPUSH ASDIRECTED PRN PRN Reason: Respiratory Depression Ondansetron HCl (Zofran) 4 mg IVPUSH ONETIME ONE Stop: 02/26/19 13:50 Last Admin: 02/26/19 13:53 Dose: 4 mg Ondansetron HCl (Zofran) Confirm Administered Dose 4 mg .ROUTE .STK-MED ONE Stop: 02/26/19 13:52 Last Admin: 02/26/19 13:54 Dose: Not Given Ondansetron HCl (Zofran) Confirm Administered Dose 4 mg .ROUTE .STK-MED ONE Stop: 02/26/19 14:34 Oxycodone/Acetaminophen (Percocet 325-5 Mg) 2 tab PO Q4H PRN PRN Reason: Pain (severe 7-10) Last Admin: 03/04/19 09:28 Dose: 2 tab Propofol (Diprivan 20 Ml) Confirm Administered Dose 200 mg .ROUTE .STK-MED ONE Stop: 02/26/19 14:34 Rocuronium [place] (Zemuron) Confirm Administered Dose 100 mg .ROUTE .STK-MED ONE Stop: 02/26/19 14:33 Succinylcholine Chloride (Succinylcholine Chloride) Confirm Administered Dose 200 mg .ROUTE .STK-MED ONE Stop: 02/26/19 14:33 - Exam General: Alert, Oriented GI/Abdominal Exam: Normal Bowel Sounds, Soft, Non-Tender Sepsis Event Note - Evaluation Sepsis Screening Result: No Definite Risk - Focused Exam Vital Signs: Vital Signs Temp Pulse Pulse Resp BP Pulse Ox 03/04/19 16:00 99.0 F 80 16 116/64 93 L 03/04/19 12:49 97.8 F 88 16 133/67 95 03/04/19 09:45 117 H 16 107/76 Date Exam was Performed: 03/04/19 Time Exam was Performed: 21:05 - Problem List Review Problem List Initiated/Reviewed/Updated: Yes - My Orders Last 24 Hours: Active Orders 24 hr Category Date Time Status Acetaminophen/HYDROcodone [[place] 325-7.5 MG] Med 03/04/19 11:41 Active 1 tab PO Q8H PRN Code Status [Resuscitation Status] Routine Resus Stat 03/04/19 13:29 Ordered Medication Orders Hydrocodone Bitart/Acetaminophen ([place] 325-7.5 Mg) 1 tab PO Q8H PRN PRN Reason: Pain Last Admin: 03/04/19 20:54 Dose: 1 tab Admin: 03/04/19 11:58 Dose: 1 tab Docusate Sodium (Colace) 100 mg PO DAILY EVANGELINA Last Admin: 03/04/19 08:26 Dose: 100 mg Admin: 03/03/19 09:29 Dose: 100 mg Admin: 03/02/19 09:33 Dose: 100 mg Admin: 03/01/19 13:01 Dose: 100 mg Hydromorphone HCl (Dilaudid) 1 mg IVPUSH Q2H PRN PRN Reason: Pain Last Admin: 02/27/19 22:52 Dose: 1 mg Admin: 02/27/19 18:40 Dose: 1 mg Admin: 02/27/19 12:42 Dose: 1 mg Admin: 02/27/19 06:58 Dose: 1 mg Ondansetron HCl (Zofran) 4 mg IVPUSH Q8H PRN PRN Reason: Nausea/Vomiting Last Admin: 03/03/19 16:43 Dose: 4 mg Admin: 03/02/19 20:40 Dose: 4 mg Admin: 03/02/19 14:45 Dose: 4 mg Admin: 02/26/19 20:57 Dose: 4 mg Phenol/Menthol (Chloraseptic Throat [place]) 0 ml MUCMEM Q2H PRN PRN Reason: Sore Throat - Assessment Assessment (Free Text/Narrative):: pt fidel po, hemodynamically stable; PT worked w pt today; plan dc home in the morning w pain script; R leg plan per ortho - Plan Plan (Free Text/Narrative):: pt fidel po, hemodynamically stable; PT worked w pt today; plan dc home in the morning w pain script; R leg plan per ortho
[2019-03-04] MEDS ORDERED: Bisacodyl 10 MG Supp RECTAL ONE (21:17)
--- NOTE | 2019-03-05 08:47 | PCM.SURGPN ---
- General Info Date of Service: 03/05/19 (0745) Date of Surgery/Procedure: 02/26/19 (s/p Right femoral shaft Fracture IM antegrade nail) POD#: 7 Functional Status: Reports: Pain Controlled (pain manageable), Tolerating Diet, Ambulating (with PT), Urinating - Review of Systems General: Reports: No Symptoms. Denies: Fever Pulmonary: Reports: No Symptoms Cardiovascular: Reports: No Symptoms Musculoskeletal: Reports: Other (hip pain) Neurological: Reports: No Symptoms Psychiatric: Reports: No Symptoms - Patient Data Vitals - Most Recent: Last Vital Signs Temp 37.1 C 03/05/19 07:32 Pulse 91 03/05/19 07:32 Resp 14 03/05/19 07:32 BP 126/65 03/05/19 07:32 Pulse Ox 96 03/05/19 07:32 Weight - Most Recent: 111.5 kg I&O - Last 24 Hours: Intake & Output 03/04/19 03/05/19 03/05/19 22:59 06:59 14:59 Intake Total 1100 120 Output Total 900 495 Balance 200 -375 Med Orders - Current: Current Medications Hydrocodone Bitart/Acetaminophen ([place] 325-7.5 Mg) 1 tab PO Q8H PRN PRN Reason: Pain Last Admin: 03/04/19 20:54 Dose: 1 tab Docusate Sodium (Colace) 100 mg PO DAILY EVANGELINA Last Admin: 03/04/19 08:26 Dose: 100 mg Hydromorphone HCl (Dilaudid) 1 mg IVPUSH Q2H PRN PRN Reason: Pain Last Admin: 02/27/19 22:52 Dose: 1 mg Ondansetron HCl (Zofran) 4 mg IVPUSH Q8H PRN PRN Reason: Nausea/Vomiting Last Admin: 03/03/19 16:43 Dose: 4 mg Phenol/Menthol (Chloraseptic Throat [place]) 0 ml MUCMEM Q2H PRN PRN Reason: Sore Throat Discontinued Medications Albuterol (Proventil Neb Soln) 2.5 mg NEB ONETIME PRN PRN Reason: Wheezing Atropine Sulfate (Atropine 0.1 Mg/Ml) 0.5 mg IVPUSH ASDIRECTED PRN PRN Reason: Hypo-perfusion Atropine Sulfate (Atropine 0.1 Mg/Ml) 1 mg IVPUSH ASDIRECTED PRN PRN Reason: Hypo-Perfusion Bisacodyl (Dulcolax) 10 mg RECTAL ONETIME ONE Stop: 03/02/19 17:02 Last Admin: 03/03/19 13:42 Dose: Not Given Bisacodyl (Dulcolax) 10 mg RECTAL ONETIME ONE Stop: 03/04/19 21:18 Last Admin: 03/04/19 22:11 Dose: 10 mg Cefazolin Sodium (Ancef) Confirm Administered Dose 2 gm .ROUTE .STK-MED ONE Stop: 02/26/19 15:33 Dextrose/Water (Dextrose 50% In Water) 50 ml IVPUSH ASDIRECTED PRN PRN Reason: Hypoglycemia Ephedrine Sulfate (Ephedrine Sulfate) Confirm Administered Dose 50 mg .ROUTE .STK-MED ONE Stop: 02/26/19 15:52 Epinephrine HCl (Epinephrine 1:10,000) 1 mg IVPUSH ASDIRECTED PRN PRN Reason: ACLS Guidelines Fentanyl (Fentanyl) 50 mcg IVPUSH ONETIME ONE Stop: 02/26/19 12:21 Last Admin: 02/26/19 12:57 Dose: Not Given Fentanyl (Sublimaze) Confirm Administered Dose 100 mcg .ROUTE .STK-MED ONE Stop: 02/26/19 12:23 Last Admin: 02/26/19 12:27 Dose: 50 mcg Fentanyl (Sublimaze) Confirm Administered Dose 250 mcg .ROUTE .STK-MED ONE Stop: 02/26/19 14:34 Fentanyl (Sublimaze) 50 - 100 mcg IVPUSH Q5M PRN PRN Reason: Pain Last Admin: 02/26/19 18:35 Dose: 50 mcg Glycopyrrolate (Robinul) Confirm Administered Dose 0.2 mg .ROUTE .STK-MED ONE Stop: 02/26/19 15:55 Hydromorphone HCl (Dilaudid) 2 mg IVPUSH ONETIME ONE Stop: 02/26/19 13:24 Last Admin: 02/26/19 13:33 Dose: 2 mg Hydromorphone HCl (Dilaudid) 2 mg IVPUSH ONETIME ONE Stop: 02/26/19 13:49 Last Admin: 02/26/19 13:53 Dose: 2 mg Hydromorphone HCl (Dilaudid) 2 mg IVPUSH Q2H PRN PRN Reason: pain Last Admin: 02/26/19 23:32 Dose: 2 mg Sodium Chloride (Normal Saline) 1,000 mls @ 999 mls/hr IV .Bolus ONE Stop: 02/26/19 13:20 Last Admin: 02/26/19 13:33 Dose: 999 mls/hr Cefazolin Sodium/Dextrose 2 gm (/ Premix) 50 mls @ 100 mls/hr IV ONETIME ONE Stop: 02/26/19 15:27 Last Admin: 02/26/19 21:39 Dose: Not Given Sodium Chloride (Normal Saline) Confirm Administered Dose 20 mls @ as directed .ROUTE .STK-MED ONE Stop: 02/26/19 15:33 Sodium Chloride (Normal Saline) 1,000 mls @ 150 mls/hr IV ASDIRECTED [facility] Last Admin: 02/27/19 18:42 Dose: 175 mls/hr Cefazolin Sodium/Dextrose 1 gm (/ Premix) 50 mls @ 100 mls/hr IV ONETIME ONE Stop: 02/27/19 00:42 Last Admin: 02/27/19 00:28 Dose: 100 mls/hr Magnesium Sulfate 2 gm/ Premix 50 mls @ 50 mls/hr IV ONETIME ONE Stop: 02/27/19 02:54 Last Admin: 02/27/19 02:01 Dose: 50 mls/hr Cefazolin Sodium/Dextrose 2 gm (/ Premix) 50 mls @ 100 mls/hr IV ONETIME ONE Stop: 02/27/19 11:53 Last Admin: 02/27/19 12:51 Dose: 100 mls/hr Sodium Chloride (Normal Saline) 1,000 mls @ 125 mls/hr IV ASDIRECTED [facility] Last Admin: 03/02/19 02:47 Dose: 125 mls/hr Iopamidol (Isovue Multipack-370 (76%)) 100 ml IVPUSH ONETIME ONE Stop: 02/26/19 12:53 Last Admin: 02/26/19 20:09 Dose: 100 ml Iopamidol (Isovue-370 (76%)) 100 ml IVPUSH ONETIME ONE Stop: 02/26/19 20:10 Last Admin: 02/26/19 21:39 Dose: Not Given Iopamidol (Isovue Multipack-370 (76%)) 60 ml IVPUSH ONETIME ONE Stop: 02/27/19 14:02 Last Admin: 02/27/19 14:01 Dose: 60 ml Lidocaine (Xylocaine-Mpf 2%) Confirm Administered Dose 5 ml .ROUTE .STK-MED ONE Stop: 02/26/19 14:34 Midazolam HCl (Versed 1 Mg/Ml) Confirm Administered Dose 2 mg .ROUTE .STK-MED ONE Stop: 02/26/19 14:34 Naloxone HCl (Narcan) 0.1 mg IVPUSH ASDIRECTED PRN PRN Reason: Respiratory Depression Ondansetron HCl (Zofran) 4 mg IVPUSH ONETIME ONE Stop: 02/26/19 13:50 Last Admin: 02/26/19 13:53 Dose: 4 mg Ondansetron HCl (Zofran) Confirm Administered Dose 4 mg .ROUTE .STK-MED ONE Stop: 02/26/19 13:52 Last Admin: 02/26/19 13:54 Dose: Not Given Ondansetron HCl (Zofran) Confirm Administered Dose 4 mg .ROUTE .STK-MED ONE Stop: 02/26/19 14:34 Oxycodone/Acetaminophen (Percocet 325-5 Mg) 2 tab PO Q4H PRN PRN Reason: Pain (severe 7-10) Last Admin: 03/04/19 09:28 Dose: 2 tab Propofol (Diprivan 20 Ml) Confirm Administered Dose 200 mg .ROUTE .STK-MED ONE Stop: 02/26/19 14:34 Rocuronium [place] (Zemuron) Confirm Administered Dose 100 mg .ROUTE .STK-MED ONE Stop: 02/26/19 14:33 Succinylcholine Chloride (Succinylcholine Chloride) Confirm Administered Dose 200 mg .ROUTE .STK-MED ONE Stop: 02/26/19 14:33 - Exam Wound/Incisions: Dressing Dry and Intact, No Drainage. No: Erythema Quality Assessment: DVT Prophylaxis (SCDs bilaterally) General: Alert, Oriented, Cooperative, No Acute Distress Lungs: Normal Respiratory Effort Cardiovascular: Regular Rate, Other (PP2+) Extremities: No Pedal Edema, Normal Capillary Refill, Other (No calf pain or tenderness. No calf erythema) Skin: Warm, Dry Neurological: Normal Speech Psy/Mental Status: Alert, Normal Affect Sepsis Event Note - Evaluation Sepsis Screening Result: No Definite Risk - Focused Exam Vital Signs: Vital Signs Temp Pulse Pulse Resp BP BP Pulse Ox 03/05/19 07:32 37.1 C 91 14 126/65 96 03/05/19 04:00 36.9 C 89 12 105/63 97 03/05/19 00:00 36.8 C 96 14 114/63 97 Date Exam was Performed: 03/05/19 Time Exam was Performed: 08:42 - Problem List Review Problem List Initiated/Reviewed/Updated: Yes - My Orders Last 24 Hours: Active Orders 24 hr Category Date Time Status Acetaminophen/HYDROcodone [[place] 325-7.5 MG] Med 03/04/19 11:41 Active 1 tab PO Q8H PRN Code Status [Resuscitation Status] Routine Resus Stat 03/04/19 13:29 Ordered Medication Orders Hydrocodone Bitart/Acetaminophen ([place] 325-7.5 Mg) 1 tab PO Q8H PRN PRN Reason: Pain Last Admin: 03/04/19 20:54 Dose: 1 tab Admin: 03/04/19 11:58 Dose: 1 tab Docusate Sodium (Colace) 100 mg PO DAILY EVANGELINA Last Admin: 03/04/19 08:26 Dose: 100 mg Admin: 03/03/19 09:29 Dose: 100 mg Admin: 03/02/19 09:33 Dose: 100 mg Admin: 03/01/19 13:01 Dose: 100 mg Hydromorphone HCl (Dilaudid) 1 mg IVPUSH Q2H PRN PRN Reason: Pain Last Admin: 02/27/19 22:52 Dose: 1 mg Admin: 02/27/19 18:40 Dose: 1 mg Admin: 02/27/19 12:42 Dose: 1 mg Admin: 02/27/19 06:58 Dose: 1 mg Ondansetron HCl (Zofran) 4 mg IVPUSH Q8H PRN PRN Reason: Nausea/Vomiting Last Admin: 03/03/19 16:43 Dose: 4 mg Admin: 03/02/19 20:40 Dose: 4 mg Admin: 03/02/19 14:45 Dose: 4 mg Admin: 02/26/19 20:57 Dose: 4 mg Phenol/Menthol (Chloraseptic Throat [place]) 0 ml MUCMEM Q2H PRN PRN Reason: Sore Throat - Assessment Assessment (Free Text/Narrative):: s/p Right femoral shaft fracture IM antegrade nail - Plan Plan (Free Text/Narrative):: Per orthopedic consultation, he is doing well. Ambulated with PT yesterday and states he felt comfortable with this. He was advised on need to be seen 3 weeks from date of surgery for suture removal.
[2019-03-05] MEDS: Docusate Sodium 100 MG Cap PO SCH (08:52)
[2019-03-05] MEDS: Acetaminophen/HYDROcodone 325-7.5 MG Tab PO PRN (08:52)
--- NOTE | 2019-03-05 11:26 | PCM.SURGPN ---
- General Info Date of Service: 03/05/19 - Review of Systems General: Reports: No Symptoms Genitourinary: Reports: No Symptoms - Patient Data Vitals - Most Recent: Last Vital Signs Temp 98.8 F 03/05/19 07:32 Pulse 91 03/05/19 07:32 Resp 14 03/05/19 07:32 BP 126/65 03/05/19 07:32 Pulse Ox 96 03/05/19 07:32 Weight - Most Recent: 245 lb 13.047 oz I&O - Last 24 Hours: Intake & Output 03/04/19 03/05/19 03/05/19 22:59 06:59 14:59 Intake Total 1100 120 Output Total 900 495 Balance 200 -375 Med Orders - Current: Current Medications Hydrocodone Bitart/Acetaminophen ([place] 325-7.5 Mg) 1 tab PO Q8H PRN PRN Reason: Pain Last Admin: 03/05/19 08:52 Dose: 1 tab Docusate Sodium (Colace) 100 mg PO DAILY EVANGELINA Last Admin: 03/05/19 08:52 Dose: 100 mg Hydromorphone HCl (Dilaudid) 1 mg IVPUSH Q2H PRN PRN Reason: Pain Last Admin: 02/27/19 22:52 Dose: 1 mg Ondansetron HCl (Zofran) 4 mg IVPUSH Q8H PRN PRN Reason: Nausea/Vomiting Last Admin: 03/03/19 16:43 Dose: 4 mg Phenol/Menthol (Chloraseptic Throat [place]) 0 ml MUCMEM Q2H PRN PRN Reason: Sore Throat Discontinued Medications Albuterol (Proventil Neb Soln) 2.5 mg NEB ONETIME PRN PRN Reason: Wheezing Atropine Sulfate (Atropine 0.1 Mg/Ml) 0.5 mg IVPUSH ASDIRECTED PRN PRN Reason: Hypo-perfusion Atropine Sulfate (Atropine 0.1 Mg/Ml) 1 mg IVPUSH ASDIRECTED PRN PRN Reason: Hypo-Perfusion Bisacodyl (Dulcolax) 10 mg RECTAL ONETIME ONE Stop: 03/02/19 17:02 Last Admin: 03/03/19 13:42 Dose: Not Given Bisacodyl (Dulcolax) 10 mg RECTAL ONETIME ONE Stop: 03/04/19 21:18 Last Admin: 03/04/19 22:11 Dose: 10 mg Cefazolin Sodium (Ancef) Confirm Administered Dose 2 gm .ROUTE .STK-MED ONE Stop: 02/26/19 15:33 Dextrose/Water (Dextrose 50% In Water) 50 ml IVPUSH ASDIRECTED PRN PRN Reason: Hypoglycemia Ephedrine Sulfate (Ephedrine Sulfate) Confirm Administered Dose 50 mg .ROUTE .STK-MED ONE Stop: 02/26/19 15:52 Epinephrine HCl (Epinephrine 1:10,000) 1 mg IVPUSH ASDIRECTED PRN PRN Reason: ACLS Guidelines Fentanyl (Fentanyl) 50 mcg IVPUSH ONETIME ONE Stop: 02/26/19 12:21 Last Admin: 02/26/19 12:57 Dose: Not Given Fentanyl (Sublimaze) Confirm Administered Dose 100 mcg .ROUTE .STK-MED ONE Stop: 02/26/19 12:23 Last Admin: 02/26/19 12:27 Dose: 50 mcg Fentanyl (Sublimaze) Confirm Administered Dose 250 mcg .ROUTE .STK-MED ONE Stop: 02/26/19 14:34 Fentanyl (Sublimaze) 50 - 100 mcg IVPUSH Q5M PRN PRN Reason: Pain Last Admin: 02/26/19 18:35 Dose: 50 mcg Glycopyrrolate (Robinul) Confirm Administered Dose 0.2 mg .ROUTE .STK-MED ONE Stop: 02/26/19 15:55 Hydromorphone HCl (Dilaudid) 2 mg IVPUSH ONETIME ONE Stop: 02/26/19 13:24 Last Admin: 02/26/19 13:33 Dose: 2 mg Hydromorphone HCl (Dilaudid) 2 mg IVPUSH ONETIME ONE Stop: 02/26/19 13:49 Last Admin: 02/26/19 13:53 Dose: 2 mg Hydromorphone HCl (Dilaudid) 2 mg IVPUSH Q2H PRN PRN Reason: pain Last Admin: 02/26/19 23:32 Dose: 2 mg Sodium Chloride (Normal Saline) 1,000 mls @ 999 mls/hr IV .Bolus ONE Stop: 02/26/19 13:20 Last Admin: 02/26/19 13:33 Dose: 999 mls/hr Cefazolin Sodium/Dextrose 2 gm (/ Premix) 50 mls @ 100 mls/hr IV ONETIME ONE Stop: 02/26/19 15:27 Last Admin: 02/26/19 21:39 Dose: Not Given Sodium Chloride (Normal Saline) Confirm Administered Dose 20 mls @ as directed .ROUTE .STK-MED ONE Stop: 02/26/19 15:33 Sodium Chloride (Normal Saline) 1,000 mls @ 150 mls/hr IV ASDIRECTED [facility] Last Admin: 02/27/19 18:42 Dose: 175 mls/hr Cefazolin Sodium/Dextrose 1 gm (/ Premix) 50 mls @ 100 mls/hr IV ONETIME ONE Stop: 02/27/19 00:42 Last Admin: 02/27/19 00:28 Dose: 100 mls/hr Magnesium Sulfate 2 gm/ Premix 50 mls @ 50 mls/hr IV ONETIME ONE Stop: 02/27/19 02:54 Last Admin: 02/27/19 02:01 Dose: 50 mls/hr Cefazolin Sodium/Dextrose 2 gm (/ Premix) 50 mls @ 100 mls/hr IV ONETIME ONE Stop: 02/27/19 11:53 Last Admin: 02/27/19 12:51 Dose: 100 mls/hr Sodium Chloride (Normal Saline) 1,000 mls [facility] Last Admin: 03/02/19 02:47 Dose: 125 mls/hr Iopamidol (Isovue Multipack-370 (76%)) 100 ml IVPUSH ONETIME ONE Stop: 02/26/19 12:53 Last Admin: 02/26/19 20:09 Dose: 100 ml Iopamidol (Isovue-370 (76%)) 100 ml IVPUSH ONETIME ONE Stop: 02/26/19 20:10 Last Admin: 02/26/19 21:39 Dose: Not Given Iopamidol (Isovue Multipack-370 (76%)) 60 ml IVPUSH ONETIME ONE Stop: 02/27/19 14:02 Last Admin: 02/27/19 14:01 Dose: 60 ml Lidocaine (Xylocaine-Mpf 2%) Confirm Administered Dose 5 ml .ROUTE .STK-MED ONE Stop: 02/26/19 14:34 Midazolam HCl (Versed 1 Mg/Ml) Confirm Administered Dose 2 mg .ROUTE .STK-MED ONE Stop: 02/26/19 14:34 Naloxone HCl (Narcan) 0.1 mg IVPUSH ASDIRECTED PRN PRN Reason: Respiratory Depression Ondansetron HCl (Zofran) 4 mg IVPUSH ONETIME ONE Stop: 02/26/19 13:50 Last Admin: 02/26/19 13:53 Dose: 4 mg Ondansetron HCl (Zofran) Confirm Administered Dose 4 mg .ROUTE .STK-MED ONE Stop: 02/26/19 13:52 Last Admin: 02/26/19 13:54 Dose: Not Given Ondansetron HCl (Zofran) Confirm Administered Dose 4 mg .ROUTE .STK-MED ONE Stop: 02/26/19 14:34 Oxycodone/Acetaminophen (Percocet 325-5 Mg) 2 tab PO Q4H PRN PRN Reason: Pain (severe 7-10) Last Admin: 03/04/19 09:28 Dose: 2 tab Propofol (Diprivan 20 Ml) Confirm Administered Dose 200 mg .ROUTE .STK-MED ONE Stop: 02/26/19 14:34 Rocuronium [place] (Zemuron) Confirm Administered Dose 100 mg .ROUTE .STK-MED ONE Stop: 02/26/19 14:33 Succinylcholine Chloride (Succinylcholine Chloride) Confirm Administered Dose 200 mg .ROUTE .STK-MED ONE Stop: 02/26/19 14:33 - Exam General: Alert Neck: Supple (abd soft, nt; had bm X 1; fidel po) Sepsis Event Note - Evaluation Sepsis Screening Result: No Definite Risk - Focused Exam Vital Signs: Vital Signs Temp Pulse Pulse Resp BP BP Pulse Ox 03/05/19 07:32 98.8 F 91 14 126/65 96 03/05/19 04:00 98.4 F 89 12 105/63 97 03/05/19 00:00 98.3 F 96 14 114/63 97 Date Exam was Performed: 03/05/19 Time Exam was Performed: 11:25 - Problem List Review Problem List Initiated/Reviewed/Updated: Yes - My Orders Last 24 Hours: Active Orders 24 hr Category Date Time Status Ready for Discharge [RC] PER UNIT ROUTINE Care 03/05/19 08:55 Active Acetaminophen/HYDROcodone [[place] 325-7.5 MG] Med 03/04/19 11:41 Active 1 tab PO Q8H PRN Code Status [Resuscitation Status] Routine Resus Stat 03/04/19 13:29 Ordered Medication Orders Hydrocodone Bitart/Acetaminophen ([place] 325-7.5 Mg) 1 tab PO Q8H PRN PRN Reason: Pain Last Admin: 03/05/19 08:52 Dose: 1 tab Admin: 03/04/19 20:54 Dose: 1 tab Admin: 03/04/19 11:58 Dose: 1 tab Docusate Sodium (Colace) 100 mg PO DAILY EVANGELINA Last Admin: 03/05/19 08:52 Dose: 100 mg Admin: 03/04/19 08:26 Dose: 100 mg Admin: 03/03/19 09:29 Dose: 100 mg Admin: 03/02/19 09:33 Dose: 100 mg Admin: 03/01/19 13:01 Dose: 100 mg Hydromorphone HCl (Dilaudid) 1 mg IVPUSH Q2H PRN PRN Reason: Pain Last Admin: 02/27/19 22:52 Dose: 1 mg Admin: 02/27/19 18:40 Dose: 1 mg Admin: 02/27/19 12:42 Dose: 1 mg Admin: 02/27/19 06:58 Dose: 1 mg Ondansetron HCl (Zofran) 4 mg IVPUSH Q8H PRN PRN Reason: Nausea/Vomiting Last Admin: 03/03/19 16:43 Dose: 4 mg Admin: 03/02/19 20:40 Dose: 4 mg Admin: 03/02/19 14:45 Dose: 4 mg Admin: 02/26/19 20:57 Dose: 4 mg Phenol/Menthol (Chloraseptic Throat [place]) 0 ml MUCMEM Q2H PRN PRN Reason: Sore Throat - Assessment Assessment (Free Text/Narrative):: dc home; fu 1 - 2 wk; no strenuous exercise or lifting > 10 lb - Plan Plan (Free Text/Narrative):: dc home; fu 1 - 2 wk; no strenuous exercise or lifting > 10 lb
== END 2019-03-05 13:00 | disposition home or self-care (01) | DRG 956 ==
LOC: MW.ED 11:55 → UNDOADMIN 17:45 → MW.ICU 17:45 → MW.MS 17:45
PROVIDERS: ADMIT Surgery; ATTEND Surgery
PROC: 0QS834Z Reposition Right Femoral Shaft with Internal Fixation Device, Percutaneous Approach (ICD-10-PCS; principal; 2019-02-26)
DX: S72.331A Displaced oblique fracture of shaft of right femur, initial encounter for closed fracture (principal); S36.113A Laceration of liver, unspecified degree, initial encounter; R00.0 Tachycardia, unspecified; E66.9 Obesity, unspecified; Z68.35 Body mass index [BMI] 35.0-35.9, adult; V89.2XXA Person injured in unspecified motor-vehicle accident, traffic, initial encounter
CPT/HCPCS: 36415; 71045; 71045-26; 71275; 71275-26; 72170; 72170-26; 73552-26-LT; 73552-RT; 73560-26-RT; 73560-RT; 74177; 74177-26; 80053; 80305-QW; 82962; 83605; 83690; 83735; 84484; 85025; 86850; 86900; 86901; 86920; 86921; 86922; 93005; 97163-GP; 97530-GP; 99284; A9270-GY; C1713; C1769; G0480; J0330; J0690; J1170; J2001; J2250; J2405; J2704; J3010; J3475; J3490; J7030; Q9967

== ENCOUNTER 2021-03-20 13:34 | Emergency (ER) | payer BC, OTHER ==
[2021-03-20] MEDS ORDERED: Orphenadrine 60 MG/2 ML Inj IM ONE (15:33)
[2021-03-20] MEDS ORDERED: Ketorolac 60 MG/2 ML SDV IM ONE (15:33)
[2021-03-20 16:15] LABS: BLOOD UREA NITROGEN,BUN 14 mg/dL (7.0-18.0); CARBON DIOXIDE,CO2 27.6 mmol/L (21.0-32.0); CHLORIDE,CL 104 mmol/L (98-107); GLUCOSE RANDOM 90 mg/dL (74-106); POTASSIUM,K 4.4 mmol/L (3.5-5.1); SODIUM,NA 139 mmol/L (136-148)
== END 2021-03-20 17:07 | disposition home or self-care (01) ==
LOC: MW.ED 13:34
DX: R25.2 Cramp and spasm (principal); E66.9 Obesity, unspecified
CPT/HCPCS: 36415; 80053; 85025; 96372; 99283; J1885; J2360